=== PATIENT | male | born 1955 | race Caucasian/White ===

== ENCOUNTER 2016-10-11 14:18 | Inpatient (IN) | payer OTHER ==
[2016-10-08 18:54] LABS: BUN (BLOOD UREA NITROGEN) 21 MG/DL (6-23); CALCIUM, SERUM 8.7 MG/DL (8.5-10.4); CHLORIDE, SERUM 93 MMOL/L (96-112); CO2 (CARBON DIOXIDE) 25 MMOL/L (24-34); CREATININE 1.25 MG/DL (0.70-1.30); GFR AFRICAN AMERICAN 71 ML/MIN (>=60); GFR NON AFRICAN AMERICAN 61 ML/MIN (>=60); POTASSIUM, SERUM 5.2 MMOL/L (3.5-5.3); SODIUM, SERUM 127 MMOL/L (135-148)
[2016-10-08 18:55] LABS: GLUCOSE, SERUM 189 MG/DL (60-99)
--- NOTE | ~2016-10-11 | IDS ---
Interim Discharge Summary [facility] [address] [place]. [address] NAME: ELADIO PETER : 53 STATUS : ADM IN PAT#: [id number] AGE: 61 ADM/REG DATE : 10/11/16 MR#: [id number] REPORT SERV DATE: 10/28/16 DICTATED BY: LORETA VIZCAINO DATE: 10/27/16 REPORT STATUS : Draft TRANSCRIBED BY: MODL DATE: 10/27/16 ADMISSION DATE: 10/11/2016 DISCHARGE DATE: ADDENDUM: Addendum to interim discharge summary dictated by Dr. Xavi Bernal on 10/24/2016. I have seen Mr. Eladio Peter for 10/25/2016 and 10/26/2016. During this period of time, the patient developed somewhat more severe encephalopathy that has been evaluated and managed by the patient's neurologist, Dr. Gan, as well as an episode of respiratory distress that prompted a CTA of the chest, as well as 2D echo. 2D echo preliminary did not show any signs of pericarditis, but the CTA of the chest with PE protocol has shown that the patient might have possible a small amount of filling defects identified in the dependent secondary and tertiary branches of the right and lower left lung which might be chronic disease. These are acute and may represent a very small volume of PE. The patient has been started on heparin drip with no bolus by Neurology on 10/26/2016 due to his history of atrial fibrillation obviously. 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 Gan, Neurology. The patient has, however, some significant confusion over the last 24 to 48 hours, and the patient did have on a CT of the brain, repeat by Dr. Gan today on 10/27/2016, it shows stable left temporal and medial right occipital hypoattenuation compatible with prior strokes in the BUSINESS OPERATIONS DIRECTOR distribution and there is a stable faint band of increased density adjacent to the temporal horn which might represent some necrosis or some microhemorrhagic changes, but no large hemorrhagic conversion seen nor significant mass effect seen. The patient, as per prior interim discharge summary of Dr. Bernal for 10/24/2016, continued to be co-managed by Neurology, Cardiothoracic Surgery, Cardiology and Infectious Disease with tentatively plans for likely rehabilitation if the patient continues to progress. CF/MODL Loreta Vizcaino M.D. / [id number] CC: Meggan Mc PANKAJ
--- NOTE | ~2016-10-11 | OP ---
Record Of Operation [facility] [address] [place]. [address] NAME: ELADIO PETER : 53 STATUS : ADM IN PAT#: [id number] AGE: 61 ADM/REG DATE : 10/11/16 MR#: [id number] REPORT SERV DATE: 10/13/16 DICTATED BY: ELIO CHAKRABORTY DATE: 10/13/16 REPORT STATUS : Draft TRANSCRIBED BY: MODL DATE: 10/13/16 DATE OF PROCEDURE: 10/13/2016 REASON FOR PROCEDURE: Rule out endocarditis, occipital stroke (new). DESCRIPTION OF PROCEDURE: All questions were answered and informed consent was obtained. Anesthesia sedated the patient. The transesophageal probe was inserted without complication on the first attempt. FINDINGS: Overall, echocardiographic windows were significantly limited as a result of prior bioprosthetic aortic valve replacement. 1. Grossly normal left ventricular systolic function with an estimated ejection fraction of 55%. 2. Grossly normal right ventricular size and systolic function. 3. Mobile echodensity noted on the ventricular surface of the aortic valve, most consistent with a vegetation. 4. Mean aortic valve gradient of approximately 21 mmHg, peak gradient of approximately 47 mmHg. Elevated gradients across the aortic valve prosthesis. 5. Structurally normal mitral and tricuspid valve without evidence of endocarditis. 6. Color Doppler demonstrates evidence of a PFO. 7. Mild tricuspid regurgitation and mitral regurgitation on color Doppler assessment. VR/NICOLE Elio Chakraborty MD / [id number] CC: MD Vj Rice
--- NOTE | ~2016-10-11 | DS ---
Discharge Summary [facility] [address] [place]. [address] NAME: ELADIO PETER : 53 STATUS : DIS IN PAT#: [id number] AGE: 61 ADM/REG DATE : 10/11/16 MR#: [id number] REPORT SERV DATE: 11/11/16 DICTATED BY: JR. MCNULTY WILLIAM JOHN DATE: 11/10/16 REPORT STATUS : Draft TRANSCRIBED BY: MODL DATE: 11/10/16 ADMISSION DATE: 10/11/2016 DISCHARGE DATE: 11/10/2016 INTERNAL MEDICINE DISCHARGE SUMMARY DISCHARGE DIAGNOSES: Include 1. Aortic valve endocarditis, status post redo aortic valve replacement and Maze procedure. 2. Embolic stroke with mild hemorrhagic conversion to the left posterior cerebral artery distribution. 3. Encephalopathy. 4. Paroxysmal atrial fibrillation. 5. Left lower extremity deep vein thrombosis, status post IVC filter. 6. Chronic systolic heart failure. 7. Diabetes mellitus type 2 with long-term insulin use. 8. Hypertension. 9. Depression. OPERATIONS, PROCEDURES, AND TREATMENTS: Include 1. CT of the brain done 10/11/2016, which showed late subacute infarct of the left occipital cortex and subcortical white matter. 2. Chest x-ray done 10/11/2016, which showed no acute cardiopulmonary process; stable sternotomy wires, right PICC line with tip over the SVC. 3. Carotid flow study done 10/12/2016, which showed carotids demonstrating category 1 less than 50% luminal stenosis. Right and left vertebral flow with antegrade. 4. CT of the abdomen and pelvis done 10/12/2016 showed ongoing bilateral perinephric stranding. The kidneys were not mechanically obstructed. There was development of small amount of bibasilar atelectasis, cardiomegaly, status post aortic valve replacement, coronary artery disease appeared stable. 5. Gastric emptying study done 10/12/2016 showed it was normal. 6. MRI of the brain without contrast done 10/12/2016 showed acute bilateral PELTS SKINNER infarcts. There were infarctions to the left thalamic body and right thalamic body seen on image 14 series 11. There was a small watershed infarct to the left cerebral hemisphere. There were tiny infarcts at the upper cortical frontoparietal region bilaterally suggesting multicirculation beds, all consistent with embolization. Right and left PEL[place]INNER demonstrate hemorrhagic transformation particularly on the left. 7. Transesophageal echocardiogram done 10/13/2016 showed grossly normal left ventricular systolic function with an ejection fraction of 55%. There was normal right ventricular size and systolic function. There was a mobile echodensity noted in the ventricular surface of the aortic valve, most consistent with vegetation. There was mean aortic gradient approximately 21 mmHg and peak gradient of 47 mmHg. There were elevated gradients across the aortic valve prosthesis. There were structurally normal mitral and tricuspid valves without endocarditis. Mild tricuspid regurgitation and mitral regurgitation. 8. CT of the brain done 10/13/2016 showed hemorrhagic conversion on the left, probably Discharge Summary [facility] [address] [facility] [place]. [address] NAME: ELADIO PETER : 53 STATUS : DIS IN PAT#: [id number] AGE: 61 ADM/REG DATE : 10/11/16 MR#: [id number] REPORT SERV DATE: 11/11/16 DICTATED BY: JR. MCNULTY WILLIAM JOHN DATE: 11/10/16 REPORT STATUS : Draft TRANSCRIBED BY: MODL DATE: 11/10/16 right occipital regions contrary to preliminary reported already been reported on the earlier evening MRI. 9. CT of the abdomen and pelvis done 10/13/2016 showed evidence of splenic infarction posterior pole in the midportion spleen of an acute nature. There was minimal bibasilar atelectatic change. Kidneys were intact. 10.Repeat CT of the brain done 10/14/2016, showed findings being compatible with bilateral posterior cerebral artery infarctions and evolution with more conspicuous hypoattenuation in the occipital and medial temporal lobes bilaterally. This is larger on the right than the left, again demonstrating very tiny foci of hyperattenuation, likely representing areas of petechial hemorrhage. There was mild cortical volume loss and known bilateral thalamic, left cerebellar and tiny bilateral prior parietal infarcts. 11.CT angiogram of the brain done 10/15/2016 showed vertebral brachiocephalic structures, intracranial basilar and posterior cerebral arteries without cutoff. On the right, there appeared to be category 3 short-segment under 1 cm of stenosis consistent with severe stenosis. It was not preocclusive in appearance. The subclavian and vertebral arteries appeared intact. There was cranial study demonstrating no hemorrhagic conversion. 12.CT angiogram of the neck done 10/15/2016 as above. 13.Chest x-ray done 10/16/2016 showed discoid atelectasis at the left base. 14.Multiple repeat chest x-rays with similar findings. 15.Cardiac catheterization done by Dr. Juan M Low on 10/20/2016 which showed [place] vessel coronary artery disease with flow-limiting disease of the first obtuse marginal artery only. There was widely patent saphenous vein graft to the first obtuse marginal artery. 16.Redo sternotomy with redo aortic root replacement reimplantation of the coronary arteries with left atrial Maze procedure performed on cardiopulmonary bypass using radiofrequency ablation. Re-implantation of single saphenous vein graft into the new homograft. Right axillary artery cannulation for cardiopulmonary bypass using 8 mm Dacron graft. There was endoscopic harvest of the saphenous vein graft of the right lower leg and transesophageal echocardiography by Dr. Mahad Donohue on 10/21/2016. 17.CT of the brain done 10/23/2016, showed findings compatible with basilar bilateral posterior cerebral artery distribution infarct and evolution involving the left temporal and occipital lobes as well as the right occipital lobe. There is continued sulcal effacement with some effacement of temporal and occipital horns and left lateral ventricle without midline shift. There was new left temporooccipital periventricular band of mildly increased attenuation possibly representing an area of microhemorrhage change or laminar necrosis. There was no large area of hemorrhagic conversion identified. There was stable mild diffuse cortical volume loss. PA and lateral chest x-ray showed left basilar pleural effusion. 18.CT angiogram of the chest done 10/26/2016, showed some small volume bibasilar filling defects in the dependent secondary and tertiary branches of the right lower lobe and left lung which may be chronic; if acute, it could represent a very small pulmonary emboli. There was revision of the ascending graft repair evident. 19.CT of the brain done 10/27/2016 showed stable left temporooccipital and medial right occipital hypoattenuation and sulcal effacement without large hemorrhagic conversion seen. Venous Doppler ultrasound done 10/28/2016, showed some clot identified in the Discharge Summary [address] [place] [address] NAME: ELADIO PETER : 53 STATUS : DIS IN PAT#: [id number] AGE: 61 ADM/REG DATE : 10/11/16 MR#: [id number] REPORT SERV DATE: 11/11/16 DICTATED BY: JR. PRICILA,DUNCAN MARIE DATE: 11/10/16 REPORT STATUS : Draft TRANSCRIBED BY: MODL DATE: 11/10/16 greater saphenous vein proximal to the junction, did not penetrate into the common femoral, however repeat exam in 3 to 5 days would be warranted. 20.MRI of the brain done 10/29/2016, showed maturing left and right posterior cerebral artery infarction with hemorrhagic conversion with evidence of scattered microbleeds in the hemispheres, new right insular infarction, and small amount of hemorrhagic complication notified. 21.Vena cava retrievable filter below the renal vein ostium, pre and post deployment vena cava appeared otherwise normal, done 10/31/2016. 22.CT of the brain done 11/03/2016, showed stabilized occipital infarctions bilaterally which have appeared to have matured into chronic infarctions. 23.PA and lateral chest x-ray done 11/08/2016 showed improved chest with small residual bilateral pleural effusion. CONSULTING PHYSICIANS: Include Dr. Wilcox; Dr. Patrick; Dr. Donohue; and Dr. Low. DISCHARGE MEDICATIONS: 1. Vitamin C 1000 units twice a day. 2. Aspirin 81 mg daily. 3. Lipitor 80 mg daily. 4. Amiodarone 400 mg twice a day. 5. Kefzol 2 g IV every eight hours for 22 days. 6. Vitamin D 50,000 units every Thursday. 7. Lexapro 10 mg daily. 8. Pepcid 20 mg daily. 9. Neurontin 100 mg four times a day. 10.Sliding scale Humalog insulin. 11.Lisinopril 5 mg daily. 12.Melatonin 9 mg at bedtime. 13.Multivitamin tablet orally daily. 14.Bactroban intranasally twice a day. 15.Metoprolol 12.5 mg orally twice a day. 16.MiraLAX one dose daily. 17.Seroquel 25 mg twice a day. 18.Florastor 1 capsule twice a day. 19.Senna 2 tablets twice a day. 20.Thiamine 100 mg daily. 21.Coumadin 5 mg daily per sliding scale. 22.Zinc 220 mcg daily. 23.Klonopin 0.5 mg every eight hours. 24.DuoNeb nebulized every four hours. 25.Dulera inhaled twice a day. 26.Levemir insulin 15 units twice a day. HOSPITAL COURSE: The patient was a 61-year-old white male, who presented to the [facility] on 10/11/2016 with vision loss of one day duration. The patient had a prior history of suspected endocarditis and was on Ancef via a PICC line. He also had a history of transaortic valve replacement, history of atrial fibrillation, type 2 diabetes, and Discharge Summary [place] [id number] [place]. [address] NAME: ELADIO PETER : 53 STATUS : DIS IN PAT#: [id number] AGE: 61 ADM/REG DATE : 10/11/16 MR#: [id number] REPORT SERV DATE: 11/11/16 DICTATED BY: JR. MCNULTY WILLIAM JOHN DATE: 11/10/16 REPORT STATUS : Draft TRANSCRIBED BY: NICOLE DATE: 11/10/16 congenital bicuspid aortic valve. The patient described acute vision loss in both eyes of one day's duration. He was admitted to the hospital by Dr. Santana Henry. Please see his excellent dictation for exact details of the presenting history, physical, and presenting data. The patient underwent multiple MRIs and was found to have bilateral posterior cerebral artery distribution strokes. There was conversion to some hemorrhagic component. He subsequently underwent a transesophageal echocardiogram which showed vegetations. Infectious Disease was involved. The patient was continued on Ancef. He will be evaluated by cardiac catheterization, Dr. Patrick, followed by consultation with Dr. Donohue of thoracic surgery. He underwent a valve replacement as above with single bypass and Maze procedure as above. In the postoperative period, the patient was found to have deep vein thrombosis. With his microhemorrhagic disease, he is not initially a candidate for anticoagulation, therefore underwent an inferior vena caval filter. As the microhemorrhages mature, the patient was felt to be stable for anticoagulation and is currently on Coumadin per protocol. The patient had a PICC line placed which had some redness at the insertion site. This was changed and replaced with a single-lumen catheter on the day of discharge 11/10/2016. For further details, please see the interim summaries dictated by Dr. Kent; Dr. Bernal; Dr. Saleem; and Dr. Siegel. Time spent on this discharge was greater than 70 minutes for patient encounter, coordination of care, and documentation. CHIQUIS/NICOLE Duncan Mcnulty Jr, MD / [id number] CC: Meggan Mc
--- NOTE | ~2016-10-11 | IDS ---
Interim Discharge Summary [facility] [address] [place]. [address] NAME: ELADIO PETER : 53 STATUS : ADM IN [facility]#: [id number] AGE: 61 ADM/REG DATE : 10/11/16 MR#: [id number] REPORT SERV DATE: 11/03/16 DICTATED BY: SHYLA SANDERS DATE: 11/03/16 REPORT STATUS : Draft TRANSCRIBED BY: NICOLE DATE: 11/03/16 ADMISSION DATE: 10/11/2016 DISCHARGE DATE: DIAGNOSES: 1. Embolic cerebrovascular accident with hemorrhagic conversion. 2. Encephalopathy secondary to above, improved. 3. Aortic valve endocarditis, status post redo aortic valve replacement. 4. Atrial fibrillation. 5. Insulin-dependent diabetes. 6. Microembolic pulmonary embolisms. 7. Left lower extremity thrombus, status post IVC filter. 8. Systolic congestive heart failure. PROCEDURES: IVC filter placement. HOSPITAL COURSE: This interim summary is for this interim week. Please refer to multiple interim summaries from Dr. Henry, Dr. Giles, Dr. Bernal, Dr. Saleem for further details. I attended care for Mr. Peter initiating on 10/28/2016 through 11/04/2016. During this interim week, the patient did have intermittent agitation, although no neuro focal deficits and continued to be seen by Neurology. Neurology did give the patient a trial of IV heparin. However, the patient had repeat MRI that revealed worsening hemorrhagic conversion and also new right insular infarction with a small amount of hemorrhage, therefore anticoagulation was completely stopped. The patient deemed not a candidate. He did have venous Doppler ultrasound of his right lower extremity that revealed clot in the greater saphenous vein, not a DVT yet, but could propagate into a DVT. Therefore, it was discussed with the patient and concerning an IVC retrievable filter. The patient and also consented for retrievable IVC filter for further protection. The patient already has microembolic PEs most likely from thrombus of the right lower extremity. He remains on room air. No signs of tachypnea. Neurology is planning on a repeat CT of the brain for further followup. Also, [facility] CONSULTANTS: 1. Neurology, Dr. Ahn and nurse practitioner, Sara. 2. Cardiothoracic Surgery, Dr. Donohue and Cardiology, Dr. Low. The patient will be followed by Dr. Loreta Saleem once again, who will attend to Mr. Peter's care. [facility]/NICOLE Shyla Sanders M.D. Interim Discharge Summary [address] [address] NAME: ELADIO PETER : 53 STATUS : ADM IN [facility]#: [id number] AGE: 61 ADM/REG DATE : 10/11/16 MR#: [id number] REPORT SERV DATE: 11/03/16 DICTATED BY: SHYLA SANDERS DATE: 11/03/16 REPORT STATUS : Draft TRANSCRIBED BY: NICOLE DATE: 11/03/16 / [id number] CC: Meggan Hays Pankaj
--- NOTE | ~2016-10-11 | HP ---
History And Physical [place] [address] [facility] [place]. [address] NAME: ELADIO PETER : 53 STATUS : ADM IN [facility]#: [id number] AGE: 61 ADM/REG DATE : 10/11/16 MR#: [id number] REPORT SERV DATE: 10/12/16 DICTATED BY: SANTANA KING DATE: 10/11/16 REPORT STATUS : Draft TRANSCRIBED BY: MODL DATE: 10/11/16 DATE OF ADMISSION: 10/11/2016 REASON FOR ADMISSION: Vision loss x1 day. HISTORY OF PRESENT ILLNESS: A 61-year-old white male with past medical history of group B strep bacteremia with suspected endocarditis on Ancef with PICC line; history of TAVR, transaortic valve replacement; history of AFib, now in sinus rhythm; diabetes type 2; and history of congenital bicuspid aortic valve status post TAVR, presenting with vision loss x24 hours. The patient stated that his last known vision clarity was approximately yesterday. Unfortunately, the patient could not give any exact timeframe. Based on the who was at bedside, the patient's stated he was able to see approximately in the evening before he went to bed. The patient noted that he was having headaches as well as blurry vision and he could not see the TV. The patient did go to bed and woke up in the morning in his usual fashion where the patient's managed to hook him up to his antibiotics for his endocarditis. Again, the noticed nothing different. The patient did admit subsequently to smoking some marijuana. Again, the patient was a little bit vague as to how much he was smoking. Other than the headache, the patient denies any nausea, vomiting, loss of consciousness or seizures. He denies any confusion, dysarthria, dysphagia, or tongue biting. He does admit to having palpitations prior to his having vision loss. PAST MEDICAL HISTORY: As above. MEDICATIONS: The patient takes: 1. Albuterol 2 puffs q.6 hours p.r.n. 2. Norvasc 5 mg p.o. daily. 3. Aspirin 325 mg p.o. daily. 4. Symbicort 80/4.5 two puffs b.i.d. 5. Ancef 1 g IV q.8. 6. Cardizem 120 mg p.o. daily. 7. Neurontin 300 mg p.o. at bedtime. 8. Glycerin Visine drops, 1 ophthalmic daily p.r.n. 9. Insulin sliding scale. 10.Nitroglycerin sublingual p.r.n. 11.Florastor 250 mg b.i.d. 12.Saw palmetto 920 mg p.o. daily. 13.Testosterone dose IM q.14 days. SOCIAL HISTORY: History of marijuana use, nondrinker. FAMILY HISTORY: Significant for ETOH abuse, COPD. REVIEW OF SYSTEMS: A 10-point review of systems conducted which were negative except for above complaints. History And Physical [address] [address] NAME: ELADIO PETER : 53 STATUS : ADM IN [facility]#: [id number] AGE: 61 ADM/REG DATE : 10/11/16 MR#: [id number] REPORT SERV DATE: 10/12/16 DICTATED BY: SANTANA KING DATE: 10/11/16 REPORT STATUS : Draft TRANSCRIBED BY: NICOLE DATE: 10/11/16 PHYSICAL EXAMINATION: VITAL SIGNS: Temp of 98.6, pulse of 97, respiratory rate of 22, BP 120/65, and O2 saturation 97%. HEAD AND NECK: Normocephalic, atraumatic. CARDIOVASCULAR: S1, S2. Regular rate and rhythm. LUNGS: Good air entry. No wheeze, rales, or rhonchi. ABDOMEN: Soft, nontender, nondistended. EXTREMITIES: No clubbing, cyanosis, or edema. NEUROLOGIC: The patient is completely blind bilaterally. Power is equal in all four limbs. Sensation is intact. No other focal deficit other than vision. LABORATORY DATA: WBC 12.9, hemoglobin 11.2, hematocrit 35.5, platelets 202. PT 17.6, INR 1.5. Sodium 127, potassium 4.8, chloride 94, bicarb 21, BUN 22, creatinine 1.4, glucose 165, GFR 53, total calcium 8.7, total protein 7.8, albumin 2.7, globulin 5.2, total bilirubin 1.0, alkaline phosphatase 173, ALT 131, AST 74. Acetone negative. Tylenol less than 2. Salicylate less than 1.7. Alcohol less than 10. ABG on room air shows pH of 7.45, pCO2 of 27, PaO2 of 88, bicarb 18.2, and O2 sat 96.6. UDS shows positive for cannabis. CT of the head shows late subacute infarct in left occipital cortex and subcortical white matter. Chest x-ray, portable, shows no acute cardiopulmonary. ASSESSMENT AND PLAN: 1. Bilateral vision loss. Based on the CT scan, the patient infarcted the left suboccipital, questionable if he also infarcted the right. We will start the patient on his aspirin, also Lipitor 80 mg p.o. at bedtime. In addition, we will continue the patient's Cardizem, questionable if this is for his atrial fibrillation versus hypertension. We will also do a swallow eval at bedside and also do PT and OT for the patient. 2. Diabetes type 2. We will continue the patient's sliding scale level 2. Check blood sugar a.c. and at bedtime. Check HbA1c and lipid profile. 3. Chronic obstructive pulmonary disease. We will continue the patient's Symbicort and albuterol. 4. DVT prophylaxis. We will give heparin. KEITH/NICOLE Santana King MD / [id number] History And Physical [address] [address] NAME: ELADIO PETER : 53 STATUS : ADM IN [facility]#: [id number] AGE: 61 ADM/REG DATE : 10/11/16 MR#: [id number] REPORT SERV DATE: 10/12/16 DICTATED BY: SANTANA KING DATE: 10/11/16 REPORT STATUS : Draft TRANSCRIBED BY: MODL DATE: 10/11/16 CC: Santana King MD
--- NOTE | ~2016-10-11 | OP ---
Record Of Operation [facility] [address] [place]. 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 PROCEDURE: Left heart catheterization, coronary arteriography, saphenous vein graft arteriography. DESCRIPTION OF PROCEDURE: After informed consent was obtained, the patient was taken in the fasting state to the cardiac catheterization laboratory, where he was prepped and draped in sterile fashion. IV moderate sedation was then obtained using intravenous Versed and fentanyl. The right inguinal region was anesthetized using 1% Xylocaine. The right femoral artery was then entered using a front wall approach and cannulated with 6-Baham[place] arterial sheath. A 6-[place]aham[place] JR4 diagnostic catheter was then used to engage the saphenous vein graft to the obtuse marginal artery. Serial angiograms were obtained. This catheter was then used to engage the [place] right coronary artery. Serial angiograms of this vessel were obtained. This catheter was then exchanged for a 6-Baham[place] JL4 catheter, which did not adequately engage the left main coronary artery. It was then exchanged for a 6-[place]am[place] JL5 catheter, which adequately engaged the vessel. Serial angiograms were obtained. Results of study as follows: HEMODYNAMICS: Aorta 100/56 with a mean pressure of 76 mmHg. CORONARY ANATOMY: 1. Left main coronary artery: The left main coronary artery arises normally from left coronary cusp. This vessel is widely patent with minimal luminal irregularities only. 2. Left anterior descending artery: The left anterior descending artery arises normally from left main coronary artery. This vessel has minimal luminal irregularities of less than 20%. 3. Left circumflex artery: The left circumflex artery arises normally from left main coronary artery. This vessel is nondominant. This vessel gives off a medium caliber bifurcating first obtuse marginal artery. The inferior limb of this bifurcating vessel has a stent visible, which is occluded. 4. The saphenous vein graft to the obtuse marginal artery is widely patent providing flow to the superior limb of the obtuse marginal artery. Some retrograde flow of the common circumflex is also identified. Mild retrograde filling of the inferior limb was seen via collaterals from the LAD. 5. Right coronary artery: The right coronary artery arises normally from the right coronary cusp. This is a large dominant vessel, which has luminal irregularities to 30%. COMPLICATIONS: No apparent complications. CONCLUSIONS: Record Of Operation [address] [place]. [address] NAME: ELADIO PETER : 53 STATUS : ADM IN PAT#: [id number] AGE: 61 ADM/REG DATE : 10/11/16 MR#: [id number] REPORT SERV DATE: 10/20/16 DICTATED BY: JUAN M VELA DATE: 10/20/16 REPORT STATUS : Draft TRANSCRIBED BY: NICOLE DATE: 10/20/16 1. [place] vessel coronary artery disease as described above. Flow-limiting disease of the first obtuse marginal artery only. 2. Widely patent saphenous vein graft to first obtuse marginal artery. 3. No apparent complications. /NICOLE Juan M Vela M.D., [facility] / [id number] CC: Meggan Cabezas PANKAJ James Zellner, M.D.
--- NOTE | ~2016-10-11 | CN ---
Consultation Report [facility] [address] [place]. [address] NAME: ELADIO PETER : 53 STATUS : ADM IN PAT#: [id number] AGE: 61 ADM/REG DATE : 10/11/16 MR#: [id number] REPORT SERV DATE: 10/12/16 DICTATED BY: DATE: REPORT STATUS : Draft TRANSCRIBED BY: MODL DATE: 10/12/16 NEUROLOGY CONSULTATION DATE OF CONSULTATION: 10/12/2016 REASON FOR CONSULT: Stroke. 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 As a result, the patient was presented to [facility] for evaluation. The patient's denies any similar events in the past and denies any previous history of stroke. The patient does not have any associated motor deficits. Denies any dysarthria, dysphagia, or language difficulties. Denies focal weakness in the arms and legs. The patient otherwise was not noted to have any fever since hospitalization and does not have any other recent illness at the time of evaluation. PAST MEDICAL HISTORY: Significant for endocarditis as well as history of transaortic valve replacement, history of atrial fibrillation, does not appear to have previous anticoagulations according to patient and family members, and type 2 diabetes. SOCIAL HISTORY: The patient does have a history of marijuana usage. He does not appear to have tobacco or alcohol usage. FAMILY HISTORY: Significant for alcohol abuse as well as COPD. REVIEW OF SYSTEMS: Negative except for those mentioned in the HPI. HOME MEDICATIONS: Consist of albuterol, amlodipine, aspirin, Symbicort, Ancef, Cardizem, Neurontin, Visine, NovoLog, Imdur, lisinopril, metoprolol, nitroglycerin, Florastor, Saw palmetto, Zocor, and testosterone. ALLERGIES: THE PATIENT WAS NOTED TO HAVE ALLERGIES TO CODEINE, SHELLFISH, WELL PSEUDOEPHEDRINE. PHYSICAL EXAMINATION: VITAL SIGNS: At the time of my evaluation, the patient was noted to have vital signs with T max of 99.4, heart rate of 76 to 119, respirations of 18 to 19, and blood pressure of 106 to 144 over 64 to 73. GENERAL: The patient is well developed, well nourished, in no acute distress. CARDIOVASCULAR: Regular rate and rhythm. No carotid bruits were otherwise auscultated. PULMONARY: Clear to auscultation bilaterally. Consultation Report [facility] [address] [place]. [address] NAME: ELADIO PETER : 53 STATUS : ADM IN PAT#: [id number] AGE: 61 ADM/REG DATE : 10/11/16 MR#: [id number] REPORT SERV DATE: 10/12/16 DICTATED BY: DATE: REPORT STATUS : Draft TRANSCRIBED BY: MODL DATE: 10/12/16 NEUROLOGIC: Generally, the patient is alert and oriented to person, place, year, month. No dysarthria was noted. No aphasia was appreciated. The patient was noted to have intact registration, but some difficulties with recall. Cranial nerves 2 through 12: Pupils are equal, round, and reactive to light. Extraocular eye movement was noted to be intact at the time of evaluation. The patient otherwise was noted to have a loss of bilateral peripheral vision, but there is preservation of the central vision at the time of evaluation. Reports symmetrical facial sensation. Midline tongue. Normal palatal movement. Normal hearing. The patient demonstrated 5/5 bilateral upper and lower extremity strength with normal muscle, bulk, and tone. Deep tendon reflex was otherwise 1+ throughout, also 2+ throughout. Downgoing toe on bilateral plantar reflexes. No apparent ataxia was noted. No pronator drift was noted on stress evaluation. Gait was deferred secondary to the acute vision changes. LABORATORY STUDIES: Demonstrated white blood cell count of 22.5, hemoglobin of 11.4, hematocrit of 34.7, platelet count of 206. Chemistry panel: Sodium 129, potassium 4.5, chloride of 96, bicarb of 18, BUN of 13, creatinine 0.89, glucose of 153, calcium of 8.9, magnesium 1.7. Vitamin B12 of 504. Folate level 5.3. Serum TSH of 3.09 and free T4 is 1.43. Hemoglobin A1c is currently pending. Urine drug screen is positive for cannabinoids, otherwise, UDS is negative for leukocyte esterase and negative for nitrites. CT scan of the brain demonstrated hypoattenuation in the left [employer] territory and left occipital area concerning for subacute stroke. IMPRESSION: Left posterior cerebral artery stroke with the patient noted to have preserved central vision, bilateral eyes. NIH stroke scale of 2. No focal motor deficit was otherwise noted. The patient does have a history of recent endocarditis as well as a history of atrial fibrillation without being on anticoagulation, concern for possible cardioembolic source. We will obtain blood cultures x2. We will also obtain DEDRA. May consider cardiology consult for evaluation of possible anticoagulation usage. Meanwhile, we are recommending continue aspirin and statin. We will obtain fasting lipid panel and hemoglobin A1c. RECOMMENDATION: 1. Aspirin and statin. 2. Fasting lipid panel and hemoglobin A1c. 3. MRI of the brain without contrast. 4. DEDRA. 5. Blood cultures x2. [facility]/NICOLE Joselito Gan MD Consultation Report [address] [address] NAME: ELADIO PETER : 53 STATUS : ADM IN [facility]#: [id number] AGE: 61 ADM/REG DATE : 10/11/16 MR#: [id number] REPORT SERV DATE: 10/12/16 DICTATED BY: DATE: REPORT STATUS : Draft TRANSCRIBED BY: NICOLE DATE: 10/12/16 / [id number] CC: MD YAMIL Rice PANKAJ
--- NOTE | ~2016-10-11 | OP ---
Record Of Operation [facility] [address] [place]. [address] NAME: ELADIO EPTER : [birth year] STATUS : ADM IN PAT#: [id number] AGE: 61 ADM/REG DATE : 10/11/16 MR#: [id number] REPORT SERV DATE: 10/22/16 DICTATED BY: SHUBHAM DONOHUE DATE: 10/21/16 REPORT STATUS : Draft TRANSCRIBED BY: MODL DATE: 10/21/16 DATE OF PROCEDURE: 10/21/2016 PREOPERATIVE DIAGNOSES: 1. Prosthetic aortic valve endocarditis. 2. Recent cerebrovascular accident (embolic). 3. Status post previous transcatheter aortic valve replacement (2014). 4. Status post previous aortic root replacement with homograft (2004). 5. Coronary artery disease, status post previous coronary bypass grafting and stenting of coronary arteries. 6. Chronic obstructive pulmonary disease. 7. Paroxysmal atrial fibrillation. 8. History of squamous cell carcinoma of the neck, status post radiation and surgery. 9. Hepatitis C. 10.History of tobacco and marijuana use. POSTOPERATIVE DIAGNOSES: 1. Prosthetic aortic valve endocarditis. 2. Recent cerebrovascular accident (embolic). 3. Status post previous transcatheter aortic valve replacement (2014). 4. Status post previous aortic root replacement with homograft (2004). 5. Coronary artery disease, status post previous coronary bypass grafting and stenting of coronary arteries. 6. Chronic obstructive pulmonary disease. 7. Paroxysmal atrial fibrillation. 8. History of squamous cell carcinoma of the neck, status post radiation and surgery. 9. Hepatitis C. 10.History of tobacco and marijuana use. PROCEDURES PERFORMED: 1. Redo sternotomy with redo aortic root replacement and reimplantation of the coronary arteries. 2. Left atrial Maze procedure performed on cardiopulmonary bypass using radiofrequency ablation. 3. Re-implantation of a single saphenous vein graft into the new homograft. 4. Right axillary artery cannulation for cardiopulmonary bypass using an 8 mm Dacron graft. 5. Endoscopic vein harvest saphenous vein from the right lower leg. 6. Transesophageal echocardiography. SURGEON: Shubham Donohue M.D. ASSISTANTS: Alessio Rodas, Robb Stanley, Claire Ceballos, and Rudolph Eisenberg. ANESTHESIA: General, Dr. Elliott. Record Of Operation [facility] [address] [place]. [address] NAME: ELADIO PETER DOB: [birth year] STATUS : ADM IN PAT#: [id number] AGE: 61 ADM/REG DATE : 10/11/16 MR#: [id number] REPORT SERV DATE: 10/22/16 DICTATED BY: SHUBHAM DONOHUE DATE: 10/21/16 REPORT STATUS : Draft TRANSCRIBED BY: NICOLE DATE: 10/21/16 CABLE SYSTEMS INSTALLER: Juan M Low M.D., [facility]. INDICATIONS: This is a 61-year-old gentleman, who has a history of a transarterial aortic valve replacement in 2014. He originally had an aortic root replacement with single-vessel bypass to the obtuse marginal vessel in 2004. He had recurrent stenosis and underwent TAVR procedure in 2014. He was admitted in August of this year with fevers and just not doing well with unknown cause. On the 11 of October, he was admitted the hospital with slurred speech and some vision loss and trouble speaking and thinking. He was found to have a subacute infarct of the occipital and subcortical cortex. He underwent evaluation with blood cultures that were positive I believe for Staphylococcus aureus. He underwent echocardiography that demonstrated vegetations of the prosthetic aortic valve and a mildly elevated gradient of 21 mmHg. We were asked to see the patient for possible urgent surgical correction. The patient was seen by Neurology and their input was sought at the time of the surgery. Because of the patient's recent episode of stroke and concern that this would occur again, it was felt that the patient should undergo elevated risk redo operation and redo aortic root replacement. In preparation for this, the patient underwent a cardiac catheterization, which demonstrated the second obtuse marginal vessel to be occluded and having collateral filling from the left system. The vein graft to the obtuse marginal system was patent directed down another OM vessel. We discussed possible urgent aortic root replacement with the patient and his . Predicted STS mortality in excess of 5% was discussed and I felt this was actually a low estimate which could not account for the patient's acute presentation and third time redo aortic valve. After lengthy discussion of operations, indication, risks, they wished proceed. FINDINGS AT OPERATION: 1. Cross-clamp 164 minutes. Total pump time 238 minutes. We used nursing home solution. 2. See photographs and record. 3. Old aortic root homograft and TAVR valve had evidence of vegetation and endocarditis. There was dehiscence of the aortic anulus and the aortic homograft in the region of the right coronary sinus and noncoronary sinus with probable abscess formation and possible pseudoaneurysm formation. 4. A 26 mm homograft was implanted. We also reimplanted the coronaries. 27 cor-knots were used to secure the aortic homograft in place. 5. Left atrial Maze procedure was performed on cardiopulmonary bypass with the left pulmonary vein isolation and left atrial appendage lesion and this was done using AtriCure bipolar clamp and pen. 6. We did ligate and amputate the left atrial appendage using 60 mm purple staple load. 7. The second obtuse marginal vessel was too small to be grafted. 8. We reimplanted the old bypass graft to the first obtuse marginal into the new homograft. 9. The bypass graft had good Doppler signal at the end of the case. 10.Right axillary artery cannulation was performed for arterial line cannulation for cardiopulmonary bypass. An 8 mm Dacron graft was anastomosed to the right axillary artery. 11.ART demonstrated good ventricular function at the end of the operation. There was mild mitral valve insufficiency. The aortic root homograft was functioning well with no aortic insufficiency. Record Of Operation [facility] [address] [facility] [place]. [address] NAME: ELADIO PETER : [birth year] STATUS : ADM IN [facility]#: [id number] AGE: 61 ADM/REG DATE : 10/11/16 MR#: [id number] REPORT SERV DATE: 10/22/16 DICTATED BY: SHUBHAM DONOHUE DATE: 10/21/16 REPORT STATUS : Draft TRANSCRIBED BY: MODL DATE: 10/21/16 12.Cultures of the aortic valve and aortic root abscess were obtained. Pathologic specimens include aortic valves, homograft, and portions of the ascending aorta. DESCRIPTION OF PROCEDURE: The patient was brought to the operating suite where general anesthesia was induced. Airway was secured with an endotracheal tube. Lines secured by Anesthesia. Calles catheter was placed. The patient's chest, abdomen, groin, and legs were prepped with Hibiclens and ChloraPrep and draped with Ioban sterile sheets. Art probe was placed by Dr. Elliott and examination carried out in my attendance as discussed above. Vegetations of the aortic valve could be seen on ART and there was mild mitral valve insufficiency. The saphenous vein was harvested from the right lower leg using endoscopic technique. Briefly, the vein was cut directly down upon through a 2 cm incision placed at the medial aspect right knee. Then, using VasoView trocars, the vessel was dissected from the surrounding subcutaneous tissue and fat. The side branches were identified, ligated, divided with cautery. Once adequate length of vein had been dissected, counter incisions were made in the lower leg where the vein was ligated, divided, and brought through the knee incision. The vein quality was good and leg wound was made hemostatic and closed in layers of absorbable suture and skin closed in subcuticular fashion. Then, the right axillary artery cannulation was carried out. A 6 cm incision made just inferior to the lateral one-third of the clavicle and carried through the subcutaneous tissue and chest wall musculature. The subclavian vein was identified and this was retracted inferiorly. Branches of the brachial plexus were identified and these were retracted gently cranial. The axillary artery was just deep to this layer and this was dissected proximally and distally. 5000 units of heparin were administered. Proximal and distal vessel controls were obtained using angled DeBakey clamps. Arteriotomy was made and the end of the 8 mm Dacron graft was anastomosed to this vessel with a running suture of 6-0 Prolene. The vascular clamps were removed. The graft de-aired. This 8 mm graft was then connected to the arterial line of the pump using a connector and this was secured to the chest wall with suture. Then, a sternal incision was performed through the old sternotomy scar. This was carried through the subcutaneous tissue. The sternal wires were divided and removed. We reconfirmed that the heart was well away from the back posterior table of the sternum and then, the sternum was opened using an oscillating saw. When the sternum opened, the adhesions from the posterior table sternum to the epicardial and pericardial space were taken down with cautery. Retractor was able to be placed and we continued this dissection focusing on the right side of the heart along the right atrium and ascending aorta. Pericardial stay sutures were placed and the pericardium was tacked out of the way. The ascending aortic homograft and the bypass graft going to the obtuse marginal were identified early and these were dissected circumferentially. The right atrium was cleared enough for cannulation and pursestring sutures were placed. Right atrial cannulation was then carried out. A dual-stage venous cannula was connected to the venous pump line. When all was in readiness, the patient was placed on cardiopulmonary bypass. We continued with our dissection of the heart from all the scar tissue. This was performed Record Of Operation [facility] [address] [facility] [place]. [address] NAME: ELADIO PETER : 53 STATUS : ADM IN PAT#: [id number] AGE: 61 ADM/REG DATE : 10/11/16 MR#: [id number] REPORT SERV DATE: 10/22/16 DICTATED BY: SHUBHAM DONOHUE DATE: 10/21/16 REPORT STATUS : Draft TRANSCRIBED BY: MODL DATE: 10/21/16 circumferentially. The homograft itself went up to about two-thirds of the ascending aorta and was very heavily calcified, but had islands of pockets of less calcification. The old vein graft was appeared to be in reasonable shape. Once we had completely dissected the heart circumferentially, the obtuse marginal vessel was inspected for possible bypass. I felt the vessel was just too small to graft. We then turned our attention towards the Maze procedure. Circumferential dissection around the confluence of pulmonary veins was carried out and the left atrial appendage was freed from the epicardial scarring. Pulmonary vein isolation was performed using AtriCure bipolar clamp. Both right and left sides were carried out. The lesion was placed at the base of left atrial appendage and a connecting lesion between the left PVI and base of left atrial appendage was performed using AtriCure bipolar pen. Then, the left atrium was ligated and amputated at its base using thoracoscopic stapler and 60 mm purple staple load. The ascending aorta was dissected up to the takeoff of the innominate artery. Previous anastomosis of the ascending aorta and homograft was easily identifiable by default that had been placed around the previous anastomosis. The aorta was then cross clamped at the takeoff of the innominate artery and the initial and only dose of cold blood crystalloid cardioplegia was given in antegrade fashion. A 2 L of Chcf solution were infused. Prior to this, ART demonstrated no significant aortic valve insufficiency. Following the first dose and only dose of cardioplegia, the homograft was divided just proximal to the takeoff of the obtuse marginal graft. The homograft was then dissected distally to its anastomosis to the ho-chunk aorta. The homograft was then transected at this level. Then, the aortic root was inspected. The old TAVR valve inside of the homograft was visualized and photographs were made. There were multiple calcifications between the cage of the TAVR valve prosthesis and the homograft. There was extensive calcifications in the aortic root and there were fibrinous vegetations on the leaflets of the TAVR prosthetic valve. We then dissected out the aortic root. The right and left coronary ostial anastomosis were dissected circumferentially and once this was achieved, we tacked the right and left main coronary buttons out of the way. We continued our dissection around the aortic root having identified the previously placed Lenny Thurston Ring around the anastomosis. This was then debrided. There was apparent disruption or dehiscence of this anastomotic suture line in the region of the base of the anulus at the right and non coronary cusps. Some of this material was cultured. In addition, a single vegetation from the prosthetic aortic valve leaflets were sent for culture. The prosthetic TAVR valve was removed by pulling on it and removing it easily from the aortic root. We continued to debride the aortic anulus of all the Thurston and the suture material from the original homograft. The area of the possible abscess was likewise debrided. Once this was completed, the whole aortic opening and annulus and left ventricle were irrigated copiously with iced saline to remove any particulate matter. We then used rifampin solution in the region of the abscess and around the aortic anulus. The annulus was then sized and a 26 mm homograft was selected and thawed. Interrupted nonpledgeted simple sutures of 2-0 Tycron placed circumferentially about the aortic anulus. After the homograft was adequately thought, it was brought up to the field and the aortic annular tissue of the homograft was dissected away from the myocardium and anterior leaf of Record Of Operation [address] [place]. [address] NAME: ELADIO PETER : 53 STATUS : ADM IN PAT#: [id number] AGE: 61 ADM/REG DATE : 10/11/16 MR#: [id number] REPORT SERV DATE: 10/22/16 DICTATED BY: SHUBHAM DONOHUE DATE: 10/21/16 REPORT STATUS : Draft TRANSCRIBED BY: MODLuciana DATE: 10/21/16 the mitral valve, which were discarded. Then, the homograft was brought up to the field beth and the sutures placed previously through the needle and the aortic anulus were passed through the annulus of the homograft. This was lowered into position and each sutures individually secured and divided using a Cor-Knot device. A total of 27 Cor-Knots were utilized. It should be noted that a small Thurston Strip was placed along this anastomosis within the suture line to prevent aortic root dilatation and failure of the homograft in the future. With the aortic valve homograft in place, the distal end of the homograft was divided just proximal to the takeoff of the innominate artery. We inspected inside the homograft and the valve leaflets appeared to be without obstruction or restricted movement. The right and left coronary buttons and ostia of the patient and the aortic root were matched up. We excised the coronary buttons of the new aortic homograft root. The left main coronary button was then sewn to the homograft with a running suture of 6-0 Prolene. In a similar fashion, the right main coronary button was trimmed and anastomosed to a small where we had excised the right coronary button from the homograft. This anastomosis was likewise performed with a running suture of 6-0 Prolene. Both coronaries were without significant tension. Then, warming was begun. The homograft was measured up to the distal portion of the ascending aorta just proximal to the aortic cross-clamp. The aorta was transected at this level and removed all this felt material and then the new homograft was anastomosed to the patient's ascending aorta with a running suture of 5-0 Prolene. Then, the old obtuse marginal vein graft was trimmed and anastomosed to the homograft at a site of a 5 mm punch aortotomy with a running suture of 6-0 Prolene. The patient was placed in Trendelenburg and ventricular and atrial pacing wires were placed. When the left ventricle and ascending aorta had been de-aired, the aortic cross-clamp was removed. Suture lines were inspected and made hemostatic. Doppler demonstrated good flow through the graft. Heart was allowed to rest on cardiopulmonary bypass for a short period of time and an AV pacing was performed and this was later converted to no pacing as the patient resumed a normal sinus rhythm. Low-dose inotropic agent was started and ventilations were begun. The heart was allowed to continue to rest on cardiopulmonary bypass. When heart demonstrated good contractility, it was allowed to fill and eject. When deairing was completed, the patient was taken out of Trendelenburg. The LV vent was removed and these pursestring sutures were tied. The ascending aortic vent was likewise removed and these pursestring sutures were tied and reinforced. The patient was then weaned from cardiopulmonary bypass with inotropic support. The venous cannula was removed and this pursestring suture was tied. The examination demonstrated good ventricular function. The aortic valve homograft appeared to be seated well and was without aortic valve insufficiency. There was mild mitral insufficiency as seen earlier during the case. Protamine was administered by Anesthesia and following a period of hemodynamic stability, the right axillary artery 8 mm Dacron graft was ligated and divided using a thoracoscopic stapler and 30 mm harris load. Then, hemostasis was obtained. The chest irrigated copiously with saline. There was mild Record Of Operation [address] [place]. [address] NAME: ELADIO PETER : 53 STATUS : ADM IN [facility]#: [id number] AGE: 61 ADM/REG DATE : 10/11/16 MR#: [id number] REPORT SERV DATE: 10/22/16 DICTATED BY: SHUBHAM DONOHUE DATE: 10/21/16 REPORT STATUS : Draft TRANSCRIBED BY: NICOLE DATE: 10/21/16 epicardial bleeding around where the old homograft had been excised from the patient's aortic root. This was controlled with Gelfoam thrombin. The patient continued to do well and once hemostasis was obtained, the chest was again irrigated with sterile water and saline. The pericardium was draped over the anterior surface and tacked in position. Chest tubes were placed and sternum reapproximated with eight sternal wires. The clavipectoral fascia and linea alba were closed with #1 Strata fix as was subcutaneous tissue. The skin was closed in subcuticular fashion. The patient tolerated the procedure well. There were no complications. Sponge and needle counts correct. DISPOSITION: The patient left intubated, sedated, and transported to the intensive care unit in a stable condition. MAVERICK/NICOLE Shubham Donohue M.D. / [id number] CC: Meggan Cabezas M.D., [facility]
--- NOTE | ~2016-10-11 | IDS ---
Interim Discharge Summary [facility] [address] [place]. [address] NAME: ELADIO PETER : 53 STATUS : ADM IN PAT#: [id number] AGE: 61 ADM/REG DATE : 10/11/16 MR#: [id number] REPORT SERV DATE: 10/15/16 DICTATED BY: TY GOINS DATE: 10/15/16 REPORT STATUS : Draft TRANSCRIBED BY: MODL DATE: 10/15/16 ADMISSION DATE: 10/11/2016 DISCHARGE DATE: DATE OF TRANSFER: 10/15/2016. CONDITION: Condition of the patient is guarded right now with guarded prognosis. DIAGNOSES: 1. So far include bilateral multifocal subacute occipital/posterior cerebral artery infarct with punctate hemorrhages noted and edema noted in the brain too where the patient is at a high risk for hemorrhagic conversion. 2. The source of this multiple emboli is cardiac-patient has intermittent atrial fibrillation and also has prosthetic aortic valve endocarditis. 3. Vegetations on the prosthetic aortic valve and endocarditis with Streptococcus. The endocarditis is with group B streptococcus, which is susceptible to Ancef. The patient is on IV Ancef and Infectious Disease is following and today is day #6 of IV Ancef. 4. The patient with group B Strep bacteremia with blood cultures positive for group B strep, sensitive to Ancef as mentioned above. 5. History of congenital bicuspid aortic valve status post replacement and now the patient with prosthetic valve endocarditis with vegetations seen on the prosthetic aortic valve. 6. Bilateral significant visual field defects secondary to the occipital infarcts. CONSULTS ON THE CASE: 1. Neurology. 2. Cardiology. 3. Cardiothoracic Surgery. 4. Infectious Disease. BRIEF HOSPITAL COURSE: This patient is a 61-year-old gentleman with a history of prosthetic aortic valve as he had a bicuspid aortic valve. The patient had a transaortic valve replacement in 2014. He also has a history of PAF. The patient has been on anticoagulation and had been doing well since, but he presented a few days ago with acute bilateral visual loss. He was found to have bilateral occipital/RUG WASHER cardioembolic stroke and hence was admitted to the hospital. As the patient underwent a DEDRA during this hospitalization as he had bacteremia with blood cultures positive for group B strep, the DEDRA did show that he had vegetations from the prosthetic aortic valve and also severe aortic stenosis with significant aortic valve gradient. Hence, CT surgery, Dr. Donohue was consulted. In the meantime, as Cardiology was planning to do a left heart catheterization on this patient and probably replacement of the aortic valve again and also for visualization of the coronary arteries and the aortic root, Neurology found that he did have shortness of breath with minimal exertion, mildly confused, and CT scan showed punctate hemorrhages and edema. Neurology was extremely concerned for hemorrhagic conversion in this patient. Hence, the Interim Discharge Summary [facility] [id number] [place]. [address] NAME: ELADIO PETER : 53 STATUS : ADM IN PAT#: [id number] AGE: 61 ADM/REG DATE : 10/11/16 MR#: [id number] REPORT SERV DATE: 10/15/16 DICTATED BY: TY GOINS DATE: 10/15/16 REPORT STATUS : Draft TRANSCRIBED BY: MODLuciana DATE: 10/15/16 reason for transfer to MICU. After discussing with both Neurology and Cardiology, it has been decided that at this time, the patient is not a candidate for anticoagulation as he is at high risk for hemorrhagic conversion of his multiple infarcts in the brain. The next decision is to repeat a CT scan of the brain to ensure stability within the next 24-48 hours and then contemplate anticoagulation. In the meantime, the patient needs very close watch and neuro checks and I discussed this case with Dr. Haily Mueller, the rehab aid on-call, and he has accepted the patient, but continues to feel that the patient may benefit from transfer to [place] where there is neurosurgical options available. I will let the rehab aid, Dr. Mueller discussed this with the neurologist and then make the decision about transfer to [place]. In the meantime, we will transfer the patient to MICU for being watched very closely for hemorrhagic conversion for the next 48 hours or so and also obtain repeat CT scan of the brain and close neuro checks. In the meantime, he continues to be on IV Ancef per ID. Cardiology continues to follow, CT surgery continues to follow, but at this time even though he has cardioembolic source, it has been decided that anticoagulation should be held at least for the next 48 hours to ensure neurological stability. WALDEMAR/NICOLE Ty Goins M.D. / [id number] CC: Ty Goins M.D.
--- NOTE | ~2016-10-11 | DS ---
Discharge Summary [address] [place]. [address] NAME: ELADIO PETER : 53 STATUS : ADM IN [facility]#: [id number] AGE: 61 ADM/REG DATE : 10/11/16 MR#: [id number] REPORT SERV DATE: 11/10/16 DICTATED BY: LORETA VIZCAINO DATE: 11/09/16 REPORT STATUS : Draft TRANSCRIBED BY: MODL DATE: 11/09/16 ADMISSION DATE: 10/11/2016 DISCHARGE DATE: DISCHARGE DIAGNOSES: 1. Aortic valve endocarditis, status post aortic valve redo, replacement postoperative day 19. 2. 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 3. Encephalopathy, significantly improved. 4. Paroxysmal atrial fibrillation, currently started on Coumadin during this hospitalization. 5. Left lower extremity deep venous thrombosis, status post inferior vena cava filter. 6. Microembolic pulmonary embolism on the CTA of the chest. 7. Chronic systolic congestive heart failure. 8. Diabetes type 2, insulin dependent. 9. Hypertension. 10.Depression. 11.Weakness and debility. PROCEDURE DURING THIS WEEK OF HOSPITALIZATION: None. HOSPITAL COURSE: Please refer to multiple interim discharge summary of Dr. Henry, Dr. Giles, Dr. Bernal, Dr. Vizcaino, Dr. Siegel as well. During the prior week of hospitalization, the patient's encephalopathy has improved significantly. The patient did have a repeat CT scan of the brain without contrast on 11/03/2016 showing stabilization of the occipital infarction bilaterally, more mature, no hemorrhagic transformation, no new bleeding, no new infarcts. As a result during this hospitalization, Neurology has decided the patient could be started on Coumadin. The patient has been started on Coumadin, and he tolerated very well. The patient currently is pending approval for inpatient rehab. There are difficulties with inpatient rehab on Mr. Peter. We are still awaiting and hopefully he will be approved for rehab soon. He is continuing to follow by CT Surgery Dr. Donohue, by Cardiology Dr. Low and Dr. Smart, by Neurology Dr. Gan signed off and Infectious Disease, Dr. Abe Perez. The patient is ready for discharge to go to an inpatient rehab when he is going to be approved with IV antibiotics recommendation as per Dr. Abe Perez. MEDICATIONS AT DISCHARGE: Include Cordarone, vitamin C, aspirin, Lipitor, Ancef, Klonopin, Lexapro, Pepcid, Neurontin, NovoLog sliding scale, Prinivil, melatonin, Lopressor, multivitamin, ointment, MiraLAX, Seroquel, Florastor, Senokot, thiamine, Coumadin sliding scale, Orazinc, and Levemir sliding scale. CF/MODL Loreta Vizcaino M.D. Discharge Summary [address] [address] NAME: ELADIO PETER : 53 STATUS : ADM IN PAT#: [id number] AGE: 61 ADM/REG DATE : 10/11/16 MR#: [id number] REPORT SERV DATE: 11/10/16 DICTATED BY: LORETA VIZCAINO DATE: 11/09/16 REPORT STATUS : Draft TRANSCRIBED BY: MODL DATE: 11/09/16 / [id number] CC: Meggan Mc PANKAJ
--- NOTE | ~2016-10-11 | IDS ---
Interim Discharge Summary [facility] [address] [place]. [address] NAME: ELADIO PETER : 53 STATUS : ADM IN PAT#: [id number] AGE: 61 ADM/REG DATE : 10/11/16 MR#: [id number] REPORT SERV DATE: 10/19/16 DICTATED BY: TY GOINS DATE: 10/19/16 REPORT STATUS : Draft TRANSCRIBED BY: MODL DATE: 10/19/16 ADMISSION DATE: 10/11/2016 DISCHARGE DATE: 10/21/2016 DIAGNOSES: Diagnoses so far, please also see my intermittent discharge summary dictated on 10/15/2016. 1. Bilateral multifocal subacute occipital/PACS SPECIALIST infarct, cardioembolic in origin. 2. The patient has not had any hemorrhagic conversion so far in these infarcts after having being watched in the MICU and then subsequently in the IMCU for several days now, so this is stable. 3. Prosthetic aortic valve endocarditis-the patient is being treated with IV Ancef per Infectious Disease for this. However, the patient does require aortic valve surgery again and aortic valve replacement again, which will be accomplished by Cardiology/Cardiovascular Surgery on 10/21/2016. 4. Chronic intermittent atrial fibrillation for which the patient is on IV heparin now per Cardiology. 5. Mild agitation for which the patient is given Klonopin low dose 0.5 mg three times a day and also given intramuscular Geodon injections and he is doing fairly well with this. 6. History of congenital bicuspid valve-status post aortic valve replacement, which is now infected with vegetations from infective endocarditis and hence requires replacement again, which will be done on Thursday hopefully. 7. Bilateral significant visual field defect secondary to these occipital infarcts. CONSULTS ON THIS CASE: Include Cardiology-Dr. Low; Neurology-Dr. Ahn; and Cardiothoracic Surgery and also Infectious Disease. HOSPITAL COURSE: For hospital course up until 10/15/2016, refer to my interim discharge summary until then. The patient was transferred to MICU for 48 hours on 10/15/2016, and then subsequently transferred to IMCU. The patient did well without developing any hemorrhagic conversion of the multiple cardioembolic strokes that he had in the occipital area. However, since he has multiple serious issues going on, he continues to be watched in the IMCU. The patient is due for a left heart catheterization by Dr. Low on Thursday10/20/2016, and then surgery for aortic valve replacement is planned on Thursday10/21/2016. In the meantime, he continues to be heparinized. He is on full anticoagulant dose of IV heparin per Dr. Low. He became agitated slightly under my care and kept insisting that he go home, to come back for the procedure or he be moved to a regular floor. The patient's requested that he get something for anxiety, and I started him on a low-dose Klonopin 0.5 mg p.o. t.i.d. This helped a little bit, but then he was also given Geodon intramuscular injections by the night PA on-call and he did well with this. Hence, he continues to be on intramuscular injections of Geodon along with the Klonopin and he seems to be doing well and his agitation has significantly improved. So far, he is stable and he does require left heart catheterization and aortic valve replacement again. His leukocytosis is persisting, but I think this will persist as long as his vegetations persist. Infectious Disease continues to follow and continues to have him on IV Ancef for group B beta-hemolytic Streptococcus endocarditis, which is susceptible to Ancef. On October Interim Discharge Summary [address] [address] NAME: ELADIO PETER : 53 STATUS : ADM IN [facility]#: [id number] AGE: 61 ADM/REG DATE : 10/11/16 MR#: [id number] REPORT SERV DATE: 10/19/16 DICTATED BY: TY GOINS DATE: 10/19/16 REPORT STATUS : Draft TRANSCRIBED BY: MODL DATE: 10/19/16 6th, he will be completing day #11 of total dose of IV Ancef so far. He is stable so far. RRA/JAYL Ty Goins M.D. / [id number] CC: Meggan Beaulieu
--- NOTE | ~2016-10-11 | CN ---
Consultation Report [facility] [address] [place]. [address] NAME: ELADIO PETER : 53 STATUS : ADM IN [facility]#: [id number] AGE: 61 ADM/REG DATE : 10/11/16 MR#: [id number] REPORT SERV DATE: 10/14/16 DICTATED BY: JUAN M VELA DATE: 10/14/16 REPORT STATUS : Draft TRANSCRIBED BY: MODL DATE: 10/14/16 CARDIOVASCULAR CONSULTATION DATE OF CONSULTATION: HISTORY OF PRESENT ILLNESS: Mr. Eladio Peter is a 61-year-old gentleman with past medical history significant for congenital bicuspid aortic valve disease, coronary artery disease, and COPD. He is status post aortic valve replacement with one-vessel bypass by Dr. Benitez in 2004. He then had a transaortic valve replacement in 2014 as he was considered to be a high surgical risk for reading. He was admitted three to four weeks ago with suspected endocarditis, but no vegetation was identified. He was treated with aggressive antibiotics for group B Strep bacteremia with improvement. He now re-presents with vision loss. A transesophageal echocardiogram was performed yesterday, which now shows an aortic valve vegetation. PAST MEDICAL HISTORY: As noted above significant for remote aortic valve replacement and one vessel bypass. This patient with subsequent tavern in 2014. He has had a stent in 2005. The patient also with a history of hypertension, hyperlipidemia, and obstructive sleep apnea. He has history of diabetes mellitus type 2. 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 MEDICATIONS: See list. ALLERGIES: THE PATIENT REPORTS ALLERGIES TO SHELL FISH, CODEINE, AND PSEUDOEPHEDRINE. SOCIAL HISTORY: The patient occasionally smokes marijuana. He denies ethanol use. FAMILY HISTORY: Noncontributory. REVIEW OF SYSTEMS: The patient reports occasional vague chest discomfort, but no significant pressure heaviness. He reports his shortness of breath is at baseline. He denies any orthopnea unless he does not wear his CPAP. PHYSICAL EXAMINATION: VITAL SIGNS: Blood pressure 125/63, pulse 97, respiratory rate 22, temperature 98.7. GENERAL: This is a well-developed, well-nourished, obese 61-year-old white male, alert, and oriented x3, in no acute distress. NECK: No jugular venous distention, hepatojugular reflux, or carotid bruits. CARDIOVASCULAR: Previous sternotomy scar is noted. There is a 1/6 systolic murmur heard best at the left upper sternal border. There is no gallop or rub. LUNGS: Clear to auscultation without wheezes, rales, or rhonchi. ABDOMEN: Obese, nontender, nondistended. Positive bowel sounds. EXTREMITIES: Reveals trace lower extremity edema. Consultation Report [address] [place]. [address] NAME: ELADIO PETER : 53 STATUS : ADM IN PAT#: [id number] AGE: 61 ADM/REG DATE : 10/11/16 MR#: [id number] REPORT SERV DATE: 10/14/16 DICTATED BY: JUAN M VELA DATE: 10/14/16 REPORT STATUS : Draft TRANSCRIBED BY: NICOLE DATE: 10/14/16 DATA REVIEWED: EKG shows normal sinus rhythm with first-degree AV block. There is no acute injury or ischemia. A transesophageal echocardiogram has been performed. I have reviewed this as well. It shows a mobile mass on the aortic valve, extremely suspicious for vegetation. LABORATORY DATA: Laboratory is significant for a BUN and creatinine of 8 and 0.8. This represents significant improvement to baseline status post acute renal failure with patient's initial admission last month. ASSESSMENT: 1. Transcatheter aortic valve replacement endocarditis. 2. Remote coronary artery bypass graft with aortic valve replacement secondary to congenital bicuspid. 3. Chronic obstructive pulmonary disease. 4. Paroxysmal atrial fibrillation. 5. Hypertension. 6. Hyperlipidemia. 7. Obstructive sleep apnea. 8. Transcatheter aortic valve replacement, aortic stenosis (peak gradient 47 mmHg with mean gradient 21 mmHg). 9. Recent admission with group B Strep bacteremia and acute renal failure. 10.History of hepatitis C. PLAN: 1. Aggressive antibiotics per ID. 2. Surgical evaluation. This patient represents an extremely high risk for complications with another aortic valve replacement. I have discussed this candidly with the patient and his . 3. We will refer to Cardiothoracic Surgery. We will ask them for operative risk assessment. If all are in agreement and repeat surgery is consider, he would need a left heart catheterization preceding this. I appreciate your consultation on this complex patient. I will follow him closely with you. /NICOLE Juan M Vela M.D., [facility] / [id number] Consultation Report [place] [address] [place]. [address] NAME: ELADIO PETER : 53 STATUS : ADM IN PAT#: [id number] AGE: 61 ADM/REG DATE : 10/11/16 MR#: [id number] REPORT SERV DATE: 10/14/16 DICTATED BY: JUAN M VELA DATE: 10/14/16 REPORT STATUS : Draft TRANSCRIBED BY: NICOLE DATE: 10/14/16 CC: MD YAMIL Rice PANKAJ Paul Cornea, M.D. Richard Morrison, M.D.
--- NOTE | ~2016-10-11 | CN ---
Consultation Report [facility] [address] [place]. [address] NAME: ELADIO PETER : 53 STATUS : ADM IN PAT#: [id number] AGE: 61 ADM/REG DATE : 10/11/16 MR#: [id number] REPORT SERV DATE: 10/14/16 DICTATED BY: SHUBHAM DONOHUE DATE: 10/14/16 REPORT STATUS : Draft TRANSCRIBED BY: MODLuciana DATE: 10/14/16 DATE OF CONSULTATION: CHIEF COMPLAINT: Shortness of breath along with recent CVA. HISTORY OF PRESENT ILLNESS: This is a 61-year-old male that has had a transaortic valvular replacement in 2014, originally having his CAB, and aortic root replacement in 2004. He was admitted on 10/11 on with some slurred speech, as well as some loss of vision and trouble speaking and trouble thinking. He was found to have a subacute infarct of the occipital and subcortical cortex. The patient has been admitted twice since August with an unknown cause. He has had an echo today that does show a mobile density on the ventricular side of the TAVR that is consistent with vegetation along with the aortic valve gradient of 21 mmHg. He also has a patent PFO. We have been consulted now for surgical evaluation. PAST MEDICAL HISTORY: Positive for COPD, positive for paroxysmal atrial fibrillation, positive for hypertension, hyperlipidemia, obstructive sleep apnea, noncompliant, positive for hep C, positive for squamous-cell pharyngeal cancer, positive also for MARY, as well as sepsis in August of 2016. SURGICAL HISTORY: As follows: TAVR in 2014, CAB with aortic root replacement in 2004, also tonsils and adenoidectomy, and a head and neck resection in 2003 for a squamous-cell pharyngeal cancer. He has also had radiation after this surgery. FAMILY HISTORY: Positive for COPD, positive for diabetes, negative for CVAs, positive for hypertension, and negative for CAD. SOCIAL HISTORY: The patient admits to smoking marijuana. He is a former tobacco user. 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 He has a history of illicit drugs including methamphetamines, IV. He is and his is present at the conversation. LABORATORY DATA: Today's labs are as follows: WBCs are 15.5, that is down from 25, H and H are 10.2 and 33.2, and platelet count is 248. Sodium is 132, potassium is 3.8, chloride is 95, BUN is 8, creatinine is 0.80, glucose is 108, alkaline phosphatase is 145 that is down. SGPT is 101, SGOT is 92. LDH is 353. PT is 15. INR is 1.2. ALLERGIES: THE PATIENT IS ALLERGIC TO CODEINE, SHELLFISH, AND PSEUDOEPHEDRINE. REVIEW OF SYSTEMS: A twelve-point review of systems was done and is negative except as above. The patient does continue to have some slurred speech and some trouble with formulating his words. He also continues to have hemianopsia of the right eye. PHYSICAL EXAMINATION: NEURO: Cranial nerves 2 through 12 are grossly intact except for his deficits from his stroke. Consultation Report [address] [place]. [address] NAME: ELADIO PETER : 53 STATUS : ADM IN [facility]#: [id number] AGE: 61 ADM/REG DATE : 10/11/16 MR#: [id number] REPORT SERV DATE: 10/14/16 DICTATED BY: SHUBHAM DONOHUE DATE: 10/14/16 REPORT STATUS : Draft TRANSCRIBED BY: NICOLE DATE: 10/14/16 CV: S1, S2. Regular rate and rhythm. No murmurs, clicks rubs or gallops. HEENT: Normocephalic, atraumatic. Pupils are equal and reactive to light. NECK: Supple. No gross deformities. No JVD is noted. ABDOMEN: Soft, round, hypoactive bowel sounds are noted. LUNGS: Clear, but diminished in the bases. EXTREMITIES: 2+ edema and 1+ pulses. HOME MEDICATIONS: As follows: 1. Proventil two puffs every six hours p.r.n. 2. Norvasc 5 mg p.o. daily. 3. Artificial Tears p.r.n. 4. Adán aspirin 325 daily. 5. Clonidine 0.1 mg twice daily. 6. Clopidogrel 75 mg p.o. daily. 7. Lisinopril 20 mg p.o. daily. 8. Metformin 500 mg daily. 9. Nitroglycerin p.r.n. chest pain. 10.Saw palmetto at bedtime. 11.Simvastatin 20 mg p.o. at bedtime. 12.Testosterone 400 mg IM every two weeks. 13.Symbicort one puff twice daily. The patient is also getting IV drug administrations at home per [facility] since he has episode of sepsis in August of 2016. He is currently on Ancef IV. ASSESSMENT AND PLAN: Aortic valve stenosis with aortic valve vegetation noted on today's echo. I have discussed the high risk of aortic valve replacement, as well as the possibilities of a redo coronary artery bypass with the patient. The STS mortality risk is 4%. Mortality and morbidity risk is 26%. The patient is currently receiving Ancef IV per Infectious Diseases. All risks and benefits of the surgery have been discussed with the and the patient. Prior to any surgery, the patient would need a cardiac cath to assess any recurrent coronary disease. This case will be discussed with Dr. Shubham Donohue. We appreciate the opportunity to participate in the care of this patient. DICTATED BY: CHERYL Stephenson/NICOLE Shubham Donohue M.D. / [id number] CC: Consultation Report [address] [address] NAME: ELADIO PETER : 53 STATUS : ADM IN [facility]#: [id number] AGE: 61 ADM/REG DATE : 10/11/16 MR#: [id number] REPORT SERV DATE: 10/14/16 DICTATED BY: SHUBHAM DONOHUE DATE: 10/14/16 REPORT STATUS : Draft TRANSCRIBED BY: NICOLE DATE: 10/14/16 Meggan Beaulieu PANKAJ
--- NOTE | ~2016-10-11 | IDS ---
Interim Discharge Summary [facility] [address] [place]. [address] NAME: ELADIO PETER : 53 STATUS : ADM IN PAT#: [id number] AGE: 61 ADM/REG DATE : 10/11/16 MR#: [id number] REPORT SERV DATE: 10/24/16 DICTATED BY: J Carlos BERNAL DATE: 10/24/16 REPORT STATUS : Draft TRANSCRIBED BY: MODL DATE: 10/24/16 ADMISSION DATE: 10/11/2016 DISCHARGE DATE: DATE OF INTERIM SUMMARY: 10/24/2016. DIAGNOSES AT TIME OF INTERIM SUMMARY: Bilateral embolic cerebrovascular accidents, posterior circulation; TAVR endocarditis, status post redo aortic valve replacement and CABG x1 and maze procedure; acute encephalopathy, resolving; atrial fibrillation, status post maze procedure; insulin-requiring diabetes; hyperlipidemia; acute blood loss anemia postoperatively, status post transfusion; anxiety disorder; hyperlipidemia. ACTIVE CONSULTATIONS: Cardiothoracic Surgery, Neurology, Infectious Disease. PROCEDURES: On 10/21/2016, the patient underwent redo sternotomy with redo aortic valve replacement and reinflation of the coronary artery. He had a left atrial maze procedure, CABG x1, endovascular vein harvest, and transesophageal echo. BRIEF HOSPITAL COURSE: Continuing on since 10/19/2016, decision has been made after cardiac cath to pursue surgery. The patient underwent a redo valve replacement and CABG with maze procedure on 10/21/2016. The patient has had an uneventful postoperative course. The patient has remained neurologically unchanged. He continues to be followed very closely by Neurology. He is currently unanticoagulated secondary to further risk of bleeding with plans to reinstitute heparin drip on 10/26/2016. If the patient remains clinically stable, he continues on IV Ancef per previous cultures under the guidance of Infectious Disease. The patient's other comorbidities have remained relatively stable from his transition through surgery and back to the cardiac step-down unit. Tentative plans are to begin mobilization with plans for likely rehabilitation the first of next week if everything continues to progress. Significant labs at the time of this interim summary show a white count of 18.1, hemoglobin of 8.2, BUN of 26, creatinine of 1.32. The patient's hospitalist care will be provided by another member of the hospitalist team starting 10/25/2016 with ongoing co-management by Neurology, Cardiothoracic Surgery, Cardiology, and Infectious Disease. NIA/NICOLE J Carlos Bernal M.D. / [id number] CC: J Carlos Bernal M.D.
[~2016-10-11 14:18] MED LIST: ASA5GR PO; ASAB PO; ASABAYER PO; ATEN100 PO; ATEN50 PO; CARD120; CAT1 PO; CAT2 PO; DEPO-TESTOS100 MG/ML IM; DEPO-TESTOS200 MG/ML IM; FLORASTOR250 MG; GLUCPH PO; IMDUR30 PO; LOP100 PO; LOP25 PO; LOSARTAN PO; MICARDIS80 PO; MOBIC7.5 PO; NEUR300 PO; NITROSTAT0.4 MG SL; NORCO1 TA2 PO; NORV5 PO; NTG150 SL; PCET PO; PLAVIX PO; PRIN20 PO; PROAIR HFA PO; PROVHFA INH; ROCEPHIN2 G2 IM; SAW PALMETT2 PO; SYMBICORT 80/4.1 INH PO; TEARS NATURA OPH; TESTOST CYP200 MG/ML IM; TESTOSTERONE IM; ULTRAM50 PO; VISINE0.05 % OPH; X5 PO; ZOCOR20 PO
[2016-10-11 14:43] LABS: HEMATOCRIT 34.5 % (40.0-51.0); HEMOGLOBIN 11.2 g/dL (13.6-17.8); MEAN CORPUS HGB CONC 32.5 g/dL (32.0-36.0); MEAN CORPUSCULAR HEMOGLOB 23.6 pg (26.0-34.0); MEAN CORPUSCULAR VOLUME 72.8 fL (80-100); MEAN PLATELET VOLUME 9.3 fL (9.2-13.0); RBC DISTRIBUTION WIDTH 18.3 % (12.0-16.0); RED CELL COUNT 4.74 10/6/uL (4.7-6.1)
[2016-10-11 14:46] LABS: ER CBC TAT 0 Hrs 09 Mins; PLATELET COUNT 202 10/3/uL (150-400); WHITE BLOOD CELLS 25.9 10/3/uL (4.5-10.5)
[2016-10-11 14:47] LABS: MANUAL DIFF YES %
[2016-10-11 14:50] LABS: INTERNATIONAL NORMAL RATI 1.5 UNITS (-)
[2016-10-11 14:51] LABS: PARTIAL THROMBO TIME 41.8 SEC (22.5-37.2)
[2016-10-11 14:54] LABS: PROTIME (NOT ORD) 17.6 SEC (12.0-14.5)
[2016-10-11 15:01] LABS: A/G RATIO 0.5 (0.7-1.9); ALBUMIN 2.7 G/DL (3.5-5.0); BUN (BLOOD UREA NITROGEN) 22 MG/DL (6-23); CALCIUM, SERUM 8.7 MG/DL (8.5-10.4); CHLORIDE, SERUM 94 MMOL/L (96-112); CO2 (CARBON DIOXIDE) 21 MMOL/L (24-34); GFR AFRICAN AMERICAN 62 ML/MIN (>=60); GFR NON AFRICAN AMERICAN 53 ML/MIN (>=60); GLOBULIN 5.2 G/DL (2.5-4.1); GLUCOSE, SERUM 165 MG/DL (60-99); POTASSIUM, SERUM 4.8 MMOL/L (3.5-5.3); SGOT(AST) 74 U/L (5-40); SGPT(ALT) 131 U/L (5-65); SODIUM, SERUM 127 MMOL/L (135-148); TOTAL PROTEIN 7.9 G/DL (6.0-8.5)
[2016-10-11 15:02] LABS: ACETAMINOPHEN LEVEL (TYLENOL) < 2.0 MCG/ML (10.0-20.0); ALCOHOL < 10 MG/DL (0); ALKALINE PHOSPHATASE 173 U/L (45-117); SALICYLATE < 1.7 MG/DL (-)
[2016-10-11 15:15] LABS: BAND NEUTROPHILS 5 %; ER DIFF TAT 0 Hrs 38 Mins; LYMPHOCYTES 1 %; LYMPHOCYTES ABSOLUTE (CALC) 0.26 10/3/uL (0.67-4.30); MONOCYTES 2 %; MONOCYTES ABSOLUTE (CALC) 0.52 10/3/uL (0.21-1.20); NEUTROPHILS ABSOLUTE (CALC) 25.12 10/3/uL (2.02-8.40); PLATELET ESTIMATE ADQ (ADEQUATE); SEGMENTED NEUTROPHIL (0) 92 %; TOTAL NUCLEATED CELLS 100
[2016-10-11 15:16] LABS: ANISOCYTOSIS 1+ (5-10/OIF) (0-5/OIF)
[2016-10-11] MEDS ORDERED: PROAIR HFA INH (15:16)
[2016-10-11 15:17] LABS: BURR CELLS 1+ (3-10/OIF) (0-2/OIF)
[2016-10-11] MEDS ORDERED: ASABAYER PO (15:17)
[2016-10-11] MEDS ORDERED: SYMBICORT 80/4.1 INH INH (15:17)
[2016-10-11] MEDS ORDERED: CEFAZ1 IV (15:19)
[2016-10-11] MEDS ORDERED: CARDCD120 PO (15:19)
[2016-10-11] MEDS ORDERED: NEUR300 PO (15:20)
[2016-10-11] MEDS ORDERED: LOP100 PO (15:21)
[2016-10-11] MEDS ORDERED: FLORASTOR250 MG PO (15:21)
[2016-10-11] MEDS ORDERED: NITROSTAT0.4 MG SL (15:21)
[2016-10-11] MEDS ORDERED: SAW PALMETT2 PO (15:22)
[2016-10-11] MEDS ORDERED: TESTOSTERONE IM (15:22)
[2016-10-11] MEDS ORDERED: NOVOLOG SC (15:23)
[2016-10-11] MEDS ORDERED: VISINE TEARS15 ML OPH (15:23)
[2016-10-11] MEDS ORDERED: PRIN20 PO (15:24)
[2016-10-11] MEDS ORDERED: ZOCOR20 PO (15:24)
[2016-10-11] MEDS ORDERED: IMDUR30 PO (15:25)
[2016-10-11] MEDS ORDERED: NORV5 PO (15:25)
[2016-10-11 15:26] LABS: ACETONE NEG
[2016-10-11 15:50] LABS: ASCORBIC ACID (UR NOT ORDER) NEG (NEG); BILIRUBIN, URINE NEGATIVE (NEG); ER URINALYSIS TAT 0 Hrs 11 Mins; KETONE, URINE TRACE MG/DL (NEG); LEUKOCYTE ESTERASE(NOT OR NEG (NEG); NITRITE (URINE) NEG (NEG); WBC (NOT ORDERED) (RFLEX) 1 (0-5)
[2016-10-11 16:15] LABS: AMPHETAMINES (NOT ORD) NEG (NEG); BARBITURATES (NOT ORDERED NEG (NEG); BENZODIAZEPINES (NOT ORD) NEG (NEG); CANNABINOIDS (THC) POS (NEG); COCAINE (NOT ORDERED) NEG (NEG); OPIATES NEG (NEG); PHENCYCLIDINE(PCP) NEG (NEG); TRICYCLICS NEG (NEG)
[2016-10-11 16:23] LABS: ALLENS TEST Pos; BE (BASE EXCESS) -4.4 MEQ/L (0 +/- 2.5); CARBOXYHEMOGLOBIN 1.1 % (0-3); HCO3 (ACTUAL BICARBONATE) 18.2 MEQ/L (23-27); HEMOBLOGIN CONTENT 12.2 G/DL (14-18); INSTRUMENT SERIAL # 8087; METHEMOGLOBIN 0.3 % (0-3); O2 CONTENT 16.4 VOL% (18-24); PCO2 (CO2 TENSION) 27 MMHG (35-45); PO2 (O2 TENSION) 86 MMHG (79-93); SAMPLE Arterial; pH 7.45 (7.37-7.43)
[2016-10-11 21:25] LABS: PROCALCITONIN 1.32 ng/mL (<0.5)
[2016-10-12 06:29] LABS: INTERNATIONAL NORMAL RATI 1.4 UNITS (-); PROTIME (NOT ORD) 16.7 SEC (12.0-14.5)
[2016-10-12 06:30] LABS: PARTIAL THROMBO TIME 34.6 SEC (22.5-37.2)
[2016-10-12 06:42] LABS: BASOPHILS 0.1 %; BASOPHILS ABSOLUTE 0.02 10/3/uL (0.0-0.16); EOSINOPHILS 0 %; EOSINOPHILS ABSOLUTE 0.01 10/3/uL (0.0-0.53); HEMATOCRIT 34.7 % (40.0-51.0); HEMOGLOBIN 11.4 g/dL (13.6-17.8); IMMATURE GRANULOCYTES ABSOLUTE 0.23 10/3/uL (0.0-0.11); LYMPHOCYTES 3.6 %; LYMPHOCYTES ABSOLUTE 0.82 10/3/uL (0.67-4.30); MEAN CORPUS HGB CONC 32.9 g/dL (32.0-36.0); MEAN CORPUSCULAR VOLUME 73.1 fL (80-100); MEAN PLATELET VOLUME 9.2 fL (9.2-13.0); MONOCYTES 9.7 %; MONOCYTES ABSOLUTE 2.18 10/3/uL (0.21-1.20); NEUTROPHILS 85.6 %; NEUTROPHILS ABSOLUTE 19.22 10/3/uL (2.02-8.40); PLATELET COUNT 206 10/3/uL (150-400); RBC DISTRIBUTION WIDTH 18.4 % (12.0-16.0); RED CELL COUNT 4.75 10/6/uL (4.7-6.1); WHITE BLOOD CELLS 22.5 10/3/uL (4.5-10.5)
[2016-10-12 06:49] LABS: MANUAL DIFF NO %
[2016-10-12 07:34] LABS: SED RATE 33 MM/HR (0-15)
[2016-10-12 08:04] LABS: BUN (BLOOD UREA NITROGEN) 13 MG/DL (6-23); CALCIUM, SERUM 8.9 MG/DL (8.5-10.4); CHLORIDE, SERUM 96 MMOL/L (96-112); CO2 (CARBON DIOXIDE) 18 MMOL/L (24-34); CREATININE 0.89 MG/DL (0.70-1.30); FOLATE 5.3 NG/ML (>5.2); FREE T4 1.43 NG/DL (0.76-1.46); GFR AFRICAN AMERICAN 106 ML/MIN (>=60); GFR NON AFRICAN AMERICAN 92 ML/MIN (>=60); GLUCOSE, SERUM 153 MG/DL (60-99); POTASSIUM, SERUM 4.5 MMOL/L (3.5-5.3); SODIUM, SERUM 129 MMOL/L (135-148)
[2016-10-13 06:01] LABS: BASOPHILS 0.2 %; BASOPHILS ABSOLUTE 0.04 10/3/uL (0.0-0.16); EOSINOPHILS 0.3 %; EOSINOPHILS ABSOLUTE 0.05 10/3/uL (0.0-0.53); HEMATOCRIT 35.3 % (40.0-51.0); HEMOGLOBIN 11.4 g/dL (13.6-17.8); IMMATURE GRANULOCYTES 1.2 %; IMMATURE GRANULOCYTES ABSOLUTE 0.23 10/3/uL (0.0-0.11); LYMPHOCYTES 5.5 %; LYMPHOCYTES ABSOLUTE 1.08 10/3/uL (0.67-4.30); MEAN CORPUS HGB CONC 32.3 g/dL (32.0-36.0); MEAN CORPUSCULAR HEMOGLOB 23.8 pg (26.0-34.0); MEAN CORPUSCULAR VOLUME 73.7 fL (80-100); MEAN PLATELET VOLUME 9.3 fL (9.2-13.0); MONOCYTES 9.1 %; MONOCYTES ABSOLUTE 1.77 10/3/uL (0.21-1.20); NEUTROPHILS 83.7 %; NEUTROPHILS ABSOLUTE 16.29 10/3/uL (2.02-8.40); PLATELET COUNT 195 10/3/uL (150-400); RBC DISTRIBUTION WIDTH 18.6 % (12.0-16.0); RED CELL COUNT 4.79 10/6/uL (4.7-6.1); WHITE BLOOD CELLS 19.5 10/3/uL (4.5-10.5)
[2016-10-13 06:03] LABS: MANUAL DIFF NO %
[2016-10-13 06:14] LABS: A/G RATIO 0.5 (0.7-1.9); ALBUMIN 2.5 G/DL (3.5-5.0); ALKALINE PHOSPHATASE 181 U/L (45-117); BUN (BLOOD UREA NITROGEN) 10 MG/DL (6-23); CALCIUM, SERUM 8.8 MG/DL (8.5-10.4); CHLORIDE, SERUM 93 MMOL/L (96-112); CHOL/HDL RATIO(NOT ORDER) 3.1 (0-5); CHOLESTEROL 116 MG/DL (< 200); CO2 (CARBON DIOXIDE) 20 MMOL/L (24-34); CREATININE 0.76 MG/DL (0.70-1.30); GFR AFRICAN AMERICAN 113 ML/MIN (>=60); GFR NON AFRICAN AMERICAN 98 ML/MIN (>=60); GLUCOSE, SERUM 131 MG/DL (60-99); HDL CHOLESTEROL 38 MG/DL (> 39); LDL CHOLESTEROL 60 MG/DL (< 130); NON-HDL CHOLESTEROL 78 MG/DL (< 160); PHOSPHORUS, SERUM 2.7 MG/DL (2.5-4.5); POTASSIUM, SERUM 3.9 MMOL/L (3.5-5.3); SGOT(AST) 69 U/L (5-40); SGPT(ALT) 97 U/L (5-65); SODIUM, SERUM 126 MMOL/L (135-148); TOTAL BILIRUBIN 0.9 MG/DL (0-1.2); TOTAL PROTEIN 7.5 G/DL (6.0-8.5)
[2016-10-13 06:16] LABS: TRIGLYCERIDE 94 MG/DL (< 150)
[2016-10-13 08:11] LABS: ANA TITER <1:40 TITER
[2016-10-13 08:30] LABS: INTERNATIONAL NORMAL RATI 1.2 UNITS (-); PROTIME (NOT ORD) 15.3 SEC (12.0-14.5)
[2016-10-13 09:13] LABS: INTERNATIONAL NORMAL RATI 1.2 UNITS (-); PARTIAL THROMBO TIME 30.7 SEC (22.5-37.2)
[2016-10-13 17:56] LABS: ASCORBIC ACID (UR NOT ORDER) NEG (NEG); BILIRUBIN, URINE NEGATIVE (NEG); KETONE, URINE 80 MG/DL (NEG); LEUKOCYTE ESTERASE(NOT OR NEG (NEG); WBC (NOT ORDERED) (RFLEX) 21 (0-5)
[2016-10-14 07:24] LABS: BASOPHILS 0.2 %; BASOPHILS ABSOLUTE 0.03 10/3/uL (0.0-0.16); EOSINOPHILS 0.8 %; EOSINOPHILS ABSOLUTE 0.12 10/3/uL (0.0-0.53); HEMATOCRIT 33.2 % (40.0-51.0); HEMOGLOBIN 10.7 g/dL (13.6-17.8); IMMATURE GRANULOCYTES 1.1 %; IMMATURE GRANULOCYTES ABSOLUTE 0.17 10/3/uL (0.0-0.11); LYMPHOCYTES 6.2 %; LYMPHOCYTES ABSOLUTE 0.96 10/3/uL (0.67-4.30); MEAN CORPUS HGB CONC 32.2 g/dL (32.0-36.0); MEAN CORPUSCULAR HEMOGLOB 23.6 pg (26.0-34.0); MEAN CORPUSCULAR VOLUME 73.1 fL (80-100); MEAN PLATELET VOLUME 9.7 fL (9.2-13.0); MONOCYTES 10.3 %; NEUTROPHILS 81.4 %; PLATELET COUNT 248 10/3/uL (150-400); RBC DISTRIBUTION WIDTH 18.6 % (12.0-16.0); RED CELL COUNT 4.54 10/6/uL (4.7-6.1); WHITE BLOOD CELLS 15.5 10/3/uL (4.5-10.5)
[2016-10-14 07:28] LABS: MANUAL DIFF NO %
[2016-10-14 07:36] LABS: A/G RATIO 0.4 (0.7-1.9); ALBUMIN 2.2 G/DL (3.5-5.0); BUN (BLOOD UREA NITROGEN) 8 MG/DL (6-23); CALCIUM, SERUM 8.6 MG/DL (8.5-10.4); CHLORIDE, SERUM 95 MMOL/L (96-112); GFR AFRICAN AMERICAN 111 ML/MIN (>=60); GFR NON AFRICAN AMERICAN 96 ML/MIN (>=60); GLOBULIN 5.2 G/DL (2.5-4.1); GLUCOSE, SERUM 108 MG/DL (60-99); PHOSPHORUS, SERUM 3.2 MG/DL (2.5-4.5); POTASSIUM, SERUM 3.8 MMOL/L (3.5-5.3); SGOT(AST) 92 U/L (5-40); SGPT(ALT) 101 U/L (5-65); SODIUM, SERUM 132 MMOL/L (135-148); TOTAL BILIRUBIN 0.9 MG/DL (0-1.2); TOTAL PROTEIN 7.4 G/DL (6.0-8.5)
[2016-10-14 07:37] LABS: ALKALINE PHOSPHATASE 145 U/L (45-117); CO2 (CARBON DIOXIDE) 25 MMOL/L (24-34)
[2016-10-15 06:14] LABS: BASOPHILS 0.1 %; BASOPHILS ABSOLUTE 0.02 10/3/uL (0.0-0.16); EOSINOPHILS 1.1 %; EOSINOPHILS ABSOLUTE 0.15 10/3/uL (0.0-0.53); HEMATOCRIT 32.3 % (40.0-51.0); HEMOGLOBIN 10.5 g/dL (13.6-17.8); IMMATURE GRANULOCYTES 1.6 %; IMMATURE GRANULOCYTES ABSOLUTE 0.22 10/3/uL (0.0-0.11); LYMPHOCYTES 5.4 %; LYMPHOCYTES ABSOLUTE 0.74 10/3/uL (0.67-4.30); MEAN CORPUS HGB CONC 32.5 g/dL (32.0-36.0); MEAN CORPUSCULAR HEMOGLOB 23.9 pg (26.0-34.0); MEAN CORPUSCULAR VOLUME 73.4 fL (80-100); MEAN PLATELET VOLUME 9.1 fL (9.2-13.0); MONOCYTES 10.9 %; NEUTROPHILS 80.9 %; NEUTROPHILS ABSOLUTE 11.09 10/3/uL (2.02-8.40); PLATELET COUNT 244 10/3/uL (150-400); RBC DISTRIBUTION WIDTH 18.2 % (12.0-16.0); WHITE BLOOD CELLS 13.7 10/3/uL (4.5-10.5)
[2016-10-15 06:15] LABS: MANUAL DIFF NO %
[2016-10-15 06:18] LABS: BUN (BLOOD UREA NITROGEN) 9 MG/DL (6-23); CALCIUM, SERUM 8.3 MG/DL (8.5-10.4); CHLORIDE, SERUM 96 MMOL/L (96-112); CO2 (CARBON DIOXIDE) 26 MMOL/L (24-34); CREATININE 0.91 MG/DL (0.70-1.30); GFR AFRICAN AMERICAN 104 ML/MIN (>=60); GFR NON AFRICAN AMERICAN 90 ML/MIN (>=60); POTASSIUM, SERUM 3.7 MMOL/L (3.5-5.3); SODIUM, SERUM 131 MMOL/L (135-148)
[2016-10-15 06:19] LABS: GLUCOSE, SERUM 143 MG/DL (60-99)
[2016-10-15 12:39] LABS: INTERNATIONAL NORMAL RATI 1.1 UNITS (-); PARTIAL THROMBO TIME 31.8 SEC (22.5-37.2); PROTIME (NOT ORD) 14.2 SEC (12.0-14.5)
[2016-10-16 04:01] LABS: BE (BASE EXCESS) -0.4 MEQ/L (0 +/- 2.5); CARBOXYHEMOGLOBIN 0.1 % (0-3); HCO3 (ACTUAL BICARBONATE) 22.2 MEQ/L (23-27); HEMOBLOGIN CONTENT 11.3 G/DL (14-18); INSTRUMENT SERIAL # 35151; METHEMOGLOBIN 0.6 % (0-3); O2 CONTENT 14.9 VOL% (18-24); OPERATOR ID 33214; PCO2 (CO2 TENSION) 30 MMHG (35-45); PO2 (O2 TENSION) 71 MMHG (79-93); SAMPLE Arterial; pH 7.49 (7.37-7.43)
[2016-10-16 04:02] LABS: BASOPHILS 0.3 %; BASOPHILS ABSOLUTE 0.04 10/3/uL (0.0-0.16); EOSINOPHILS 1.5 %; EOSINOPHILS ABSOLUTE 0.23 10/3/uL (0.0-0.53); HEMATOCRIT 32.8 % (40.0-51.0); HEMOGLOBIN 10.4 g/dL (13.6-17.8); IMMATURE GRANULOCYTES 1.6 %; IMMATURE GRANULOCYTES ABSOLUTE 0.25 10/3/uL (0.0-0.11); LYMPHOCYTES 7.5 %; LYMPHOCYTES ABSOLUTE 1.18 10/3/uL (0.67-4.30); MANUAL DIFF NO %; MEAN CORPUS HGB CONC 31.7 g/dL (32.0-36.0); MEAN CORPUSCULAR HEMOGLOB 23.1 pg (26.0-34.0); MEAN CORPUSCULAR VOLUME 72.7 fL (80-100); MEAN PLATELET VOLUME 9.3 fL (9.2-13.0); MONOCYTES 9.9 %; MONOCYTES ABSOLUTE 1.56 10/3/uL (0.21-1.20); NEUTROPHILS 79.2 %; NEUTROPHILS ABSOLUTE 12.52 10/3/uL (2.02-8.40); PLATELET COUNT 263 10/3/uL (150-400); RBC DISTRIBUTION WIDTH 18.1 % (12.0-16.0); RED CELL COUNT 4.51 10/6/uL (4.7-6.1); WHITE BLOOD CELLS 15.8 10/3/uL (4.5-10.5)
[2016-10-16 04:12] LABS: BUN (BLOOD UREA NITROGEN) 9 MG/DL (6-23); CALCIUM, SERUM 8.5 MG/DL (8.5-10.4); CHLORIDE, SERUM 93 MMOL/L (96-112); CO2 (CARBON DIOXIDE) 25 MMOL/L (24-34); GFR AFRICAN AMERICAN 106 ML/MIN (>=60); GFR NON AFRICAN AMERICAN 91 ML/MIN (>=60); GLUCOSE, SERUM 130 MG/DL (60-99); POTASSIUM, SERUM 3.7 MMOL/L (3.5-5.3); SODIUM, SERUM 129 MMOL/L (135-148)
[2016-10-16 06:43] LABS: ANISOCYTOSIS 1+ (5-10/OIF) (0-5/OIF); BAND NEUTROPHILS 4 %; EOSINOPHILS 1 %; EOSINOPHILS ABSOLUTE (CALC) 0.16 10/3/uL (0.0-0.53); IMMATURE GRANS ABSOLUTE (CALC) 0.16 10/3/uL (0.0-0.11); LYMPHOCYTES 9 %; LYMPHOCYTES ABSOLUTE (CALC) 1.42 10/3/uL (0.67-4.30); METAMYELOCYTES 1 %; MONOCYTES 12 %; NEUTROPHILS ABSOLUTE (CALC) 12.17 10/3/uL (2.02-8.40); PLATELET ESTIMATE ADQ (ADEQUATE); POLYCHROMASIA 1+ (2-5/OIF) (0-1/OIF); SEGMENTED NEUTROPHIL (0) 73 %; TOTAL NUCLEATED CELLS 100
[2016-10-16 06:44] LABS: HYPOCHROMIA 1+ (3-10/OIF) (0-2/OIF); TEARDROP SHAPED RBCS OCC (0-2/OIF); TOXIC GRANULATION 1+; VACUOLATED NEUTROPHILES OCC
[2016-10-16 21:38] LABS: CPK 61 U/L (0-200)
[2016-10-16 21:39] LABS: CK-MB < 0.5 NG/ML
[2016-10-17 04:25] LABS: BASOPHILS 0.1 %; BASOPHILS ABSOLUTE 0.02 10/3/uL (0.0-0.16); EOSINOPHILS 2.7 %; EOSINOPHILS ABSOLUTE 0.38 10/3/uL (0.0-0.53); HEMATOCRIT 33.1 % (40.0-51.0); HEMOGLOBIN 10.8 g/dL (13.6-17.8); IMMATURE GRANULOCYTES 1.7 %; IMMATURE GRANULOCYTES ABSOLUTE 0.24 10/3/uL (0.0-0.11); LYMPHOCYTES 8.4 %; LYMPHOCYTES ABSOLUTE 1.17 10/3/uL (0.67-4.30); MEAN CORPUS HGB CONC 32.6 g/dL (32.0-36.0); MEAN CORPUSCULAR VOLUME 73.6 fL (80-100); MEAN PLATELET VOLUME 8.8 fL (9.2-13.0); MONOCYTES 9.1 %; MONOCYTES ABSOLUTE 1.26 10/3/uL (0.21-1.20); NEUTROPHILS ABSOLUTE 10.82 10/3/uL (2.02-8.40); PLATELET COUNT 237 10/3/uL (150-400); WHITE BLOOD CELLS 13.9 10/3/uL (4.5-10.5)
[2016-10-17 04:27] LABS: MANUAL DIFF NO %
[2016-10-17 04:41] LABS: ALBUMIN 2.4 G/DL (3.5-5.0); BUN (BLOOD UREA NITROGEN) 11 MG/DL (6-23); CALCIUM, SERUM 8.5 MG/DL (8.5-10.4); CHLORIDE, SERUM 95 MMOL/L (96-112); CO2 (CARBON DIOXIDE) 27 MMOL/L (24-34); CREATININE 0.99 MG/DL (0.70-1.30); GFR AFRICAN AMERICAN 94 ML/MIN (>=60); GFR NON AFRICAN AMERICAN 81 ML/MIN (>=60); GLUCOSE, SERUM 152 MG/DL (60-99); PHOSPHORUS, SERUM 3.5 MG/DL (2.5-4.5); POTASSIUM, SERUM 3.8 MMOL/L (3.5-5.3); SODIUM, SERUM 130 MMOL/L (135-148)
[2016-10-17 20:12] LABS: PROTEIN C ACTIVITY 93 % (70-145); PROTEIN S ACTIVITY 129 % (69-161)
[2016-10-18 05:24] LABS: BASOPHILS 0.2 %; BASOPHILS ABSOLUTE 0.04 10/3/uL (0.0-0.16); EOSINOPHILS 2.1 %; EOSINOPHILS ABSOLUTE 0.35 10/3/uL (0.0-0.53); HEMATOCRIT 33.6 % (40.0-51.0); HEMOGLOBIN 10.8 g/dL (13.6-17.8); IMMATURE GRANULOCYTES 1.8 %; IMMATURE GRANULOCYTES ABSOLUTE 0.31 10/3/uL (0.0-0.11); LYMPHOCYTES 8.5 %; LYMPHOCYTES ABSOLUTE 1.44 10/3/uL (0.67-4.30); MANUAL DIFF NO %; MEAN CORPUS HGB CONC 32.1 g/dL (32.0-36.0); MEAN CORPUSCULAR HEMOGLOB 23.9 pg (26.0-34.0); MEAN CORPUSCULAR VOLUME 74.5 fL (80-100); MEAN PLATELET VOLUME 9.3 fL (9.2-13.0); MONOCYTES 7.9 %; MONOCYTES ABSOLUTE 1.34 10/3/uL (0.21-1.20); NEUTROPHILS 79.5 %; NEUTROPHILS ABSOLUTE 13.45 10/3/uL (2.02-8.40); PLATELET COUNT 255 10/3/uL (150-400); RBC DISTRIBUTION WIDTH 18.3 % (12.0-16.0); RED CELL COUNT 4.51 10/6/uL (4.7-6.1); WHITE BLOOD CELLS 16.9 10/3/uL (4.5-10.5)
[2016-10-18 05:31] LABS: BUN (BLOOD UREA NITROGEN) 9 MG/DL (6-23); CALCIUM, SERUM 8.7 MG/DL (8.5-10.4); CHLORIDE, SERUM 95 MMOL/L (96-112); CO2 (CARBON DIOXIDE) 24 MMOL/L (24-34); GFR AFRICAN AMERICAN 106 ML/MIN (>=60); GFR NON AFRICAN AMERICAN 91 ML/MIN (>=60); GLUCOSE, SERUM 148 MG/DL (60-99); SODIUM, SERUM 131 MMOL/L (135-148)
[2016-10-18 05:32] LABS: POTASSIUM, SERUM 4.2 MMOL/L (3.5-5.3)
[2016-10-19 03:41] LABS: BASOPHILS 0.3 %; BASOPHILS ABSOLUTE 0.04 10/3/uL (0.0-0.16); EOSINOPHILS 3.5 %; EOSINOPHILS ABSOLUTE 0.44 10/3/uL (0.0-0.53); HEMATOCRIT 32.3 % (40.0-51.0); HEMOGLOBIN 10.4 g/dL (13.6-17.8); IMMATURE GRANULOCYTES 1.8 %; IMMATURE GRANULOCYTES ABSOLUTE 0.23 10/3/uL (0.0-0.11); LYMPHOCYTES 11.8 %; LYMPHOCYTES ABSOLUTE 1.49 10/3/uL (0.67-4.30); MEAN CORPUS HGB CONC 32.2 g/dL (32.0-36.0); MEAN CORPUSCULAR HEMOGLOB 24.4 pg (26.0-34.0); MEAN CORPUSCULAR VOLUME 75.6 fL (80-100); MEAN PLATELET VOLUME 8.9 fL (9.2-13.0); MONOCYTES 6.1 %; MONOCYTES ABSOLUTE 0.77 10/3/uL (0.21-1.20); NEUTROPHILS 76.5 %; NEUTROPHILS ABSOLUTE 9.65 10/3/uL (2.02-8.40); PLATELET COUNT 214 10/3/uL (150-400); RBC DISTRIBUTION WIDTH 18.6 % (12.0-16.0); RED CELL COUNT 4.27 10/6/uL (4.7-6.1); WHITE BLOOD CELLS 12.6 10/3/uL (4.5-10.5)
[2016-10-19 03:42] LABS: MANUAL DIFF NO %
[2016-10-19 03:53] LABS: BUN (BLOOD UREA NITROGEN) 9 MG/DL (6-23); CALCIUM, SERUM 8.4 MG/DL (8.5-10.4); CHLORIDE, SERUM 96 MMOL/L (96-112); CO2 (CARBON DIOXIDE) 26 MMOL/L (24-34); CREATININE 0.92 MG/DL (0.70-1.30); GFR AFRICAN AMERICAN 103 ML/MIN (>=60); GFR NON AFRICAN AMERICAN 89 ML/MIN (>=60); GLUCOSE, SERUM 149 MG/DL (60-99); POTASSIUM, SERUM 4.1 MMOL/L (3.5-5.3); SODIUM, SERUM 135 MMOL/L (135-148)
[2016-10-19 22:22] LABS: TROPONIN I 0.21 NG/ML (<0.05)
[2016-10-21 01:44] LABS: BASOPHILS 0.1 %; BASOPHILS ABSOLUTE 0.02 10/3/uL (0.0-0.16); EOSINOPHILS 1.8 %; EOSINOPHILS ABSOLUTE 0.25 10/3/uL (0.0-0.53); HEMATOCRIT 29.9 % (40.0-51.0); HEMOGLOBIN 9.6 g/dL (13.6-17.8); IMMATURE GRANULOCYTES 1.2 %; IMMATURE GRANULOCYTES ABSOLUTE 0.17 10/3/uL (0.0-0.11); LYMPHOCYTES 7.6 %; LYMPHOCYTES ABSOLUTE 1.06 10/3/uL (0.67-4.30); MANUAL DIFF NO %; MEAN CORPUS HGB CONC 32.1 g/dL (32.0-36.0); MEAN CORPUSCULAR HEMOGLOB 24.1 pg (26.0-34.0); MEAN CORPUSCULAR VOLUME 75.1 fL (80-100); MEAN PLATELET VOLUME 8.9 fL (9.2-13.0); MONOCYTES 7.8 %; MONOCYTES ABSOLUTE 1.08 10/3/uL (0.21-1.20); NEUTROPHILS 81.5 %; NEUTROPHILS ABSOLUTE 11.31 10/3/uL (2.02-8.40); PLATELET COUNT 215 10/3/uL (150-400); RBC DISTRIBUTION WIDTH 18.9 % (12.0-16.0); RED CELL COUNT 3.98 10/6/uL (4.7-6.1); WHITE BLOOD CELLS 13.9 10/3/uL (4.5-10.5)
[2016-10-21 01:51] LABS: INTERNATIONAL NORMAL RATI 1.1 UNITS (-); PARTIAL THROMBO TIME 33.7 SEC (22.5-37.2); PROTIME (NOT ORD) 14.4 SEC (12.0-14.5)
[2016-10-21 06:49] LABS: % IRON SAT 10 % (20-50); A/G RATIO 0.5 (0.7-1.9); ALBUMIN 2.2 G/DL (3.5-5.0); ALKALINE PHOSPHATASE 97 U/L (45-117); BUN (BLOOD UREA NITROGEN) 10 MG/DL (6-23); CALCIUM, SERUM 8.3 MG/DL (8.5-10.4); CHLORIDE, SERUM 97 MMOL/L (96-112); CO2 (CARBON DIOXIDE) 25 MMOL/L (24-34); CREATININE 1.04 MG/DL (0.70-1.30); GFR AFRICAN AMERICAN 89 ML/MIN (>=60); GFR NON AFRICAN AMERICAN 77 ML/MIN (>=60); GLOBULIN 4.4 G/DL (2.5-4.1); GLUCOSE, SERUM 147 MG/DL (60-99); IRON BINDING CAPACITY 309 MCG/DL (250-450); IRON, SERUM 32 MCG/DL (35-150); POTASSIUM, SERUM 4.1 MMOL/L (3.5-5.3); SGOT(AST) 100 U/L (5-40); SGPT(ALT) 55 U/L (5-65); SODIUM, SERUM 133 MMOL/L (135-148); TOTAL BILIRUBIN 0.8 MG/DL (0-1.2); TOTAL PROTEIN 6.6 G/DL (6.0-8.5)
[2016-10-21 20:03] LABS: TEG - ANGLE 72.3 DEG (53-72); TEG - COAGULATION INDEX 0.6 (-3 TO 3); TEG - MAXIMUM AMPLITUDE 66.3 MM (50-70); TEG - RATE 7.2 MIN (5.0-10.0)
[2016-10-21 20:38] LABS: BE (BASE EXCESS) -8.7 MEQ/L (0 +/- 2.5); CARBOXYHEMOGLOBIN 0.4 % (0-3); HCO3 (ACTUAL BICARBONATE) 18.6 MEQ/L (23-27); INSTRUMENT SERIAL # 11843; METHEMOGLOBIN 1.2 % (0-3); MODE SIMV; O2 CONTENT 12.9 VOL% (18-24); OPERATOR ID 16469; PCO2 (CO2 TENSION) 47 MMHG (35-45); PO2 (O2 TENSION) 246 MMHG (79-93); SAMPLE Arterial; TIDAL VOLUME 800 ML; pH 7.22 (7.37-7.43)
[2016-10-21 20:53] LABS: HEMATOCRIT 25.6 % (40.0-51.0); HEMOGLOBIN 8.1 g/dL (13.6-17.8); MEAN CORPUS HGB CONC 31.6 g/dL (32.0-36.0); MEAN CORPUSCULAR HEMOGLOB 24.4 pg (26.0-34.0); MEAN CORPUSCULAR VOLUME 77.1 fL (80-100); PLATELET COUNT 131 10/3/uL (150-400); RBC DISTRIBUTION WIDTH 18.7 % (12.0-16.0); RED CELL COUNT 3.32 10/6/uL (4.7-6.1); WHITE BLOOD CELLS 26.1 10/3/uL (4.5-10.5)
[2016-10-21 20:55] LABS: MANUAL DIFF YES %
[2016-10-21 20:59] LABS: INTERNATIONAL NORMAL RATI 1.7 UNITS (-); PARTIAL THROMBO TIME 39.7 SEC (22.5-37.2)
[2016-10-21 21:07] LABS: CHLORIDE, SERUM 104 MMOL/L (96-112); CO2 (CARBON DIOXIDE) 24 MMOL/L (24-34); GFR AFRICAN AMERICAN 62 ML/MIN (>=60); GFR NON AFRICAN AMERICAN 53 ML/MIN (>=60); SGPT(ALT) 32 U/L (5-65); SODIUM, SERUM 137 MMOL/L (135-148); TOTAL PROTEIN 5.3 G/DL (6.0-8.5)
[2016-10-21 21:08] LABS: A/G RATIO 1.3 (0.7-1.9); ALKALINE PHOSPHATASE 58 U/L (45-117); BUN (BLOOD UREA NITROGEN) 16 MG/DL (6-23); CALCIUM, SERUM 6.9 MG/DL (8.5-10.4); GLOBULIN 2.3 G/DL (2.5-4.1); GLUCOSE, SERUM 103 MG/DL (60-99); POTASSIUM, SERUM 4.9 MMOL/L (3.5-5.3); SGOT(AST) 118 U/L (5-40); TOTAL BILIRUBIN 2.4 MG/DL (0-1.2)
[2016-10-21 21:11] LABS: BAND NEUTROPHILS 19 %; LYMPHOCYTES 3 %; LYMPHOCYTES ABSOLUTE (CALC) 0.78 10/3/uL (0.67-4.30); NEUTROPHILS ABSOLUTE (CALC) 25.32 10/3/uL (2.02-8.40); SEGMENTED NEUTROPHIL (0) 78 %; TOTAL NUCLEATED CELLS 100
[2016-10-21 21:12] LABS: ANISOCYTOSIS 1+ (5-10/OIF) (0-5/OIF); ELLIPTOCYTES 1+ (3-10/OIF) (0-2/OIF)
[2016-10-21 21:13] LABS: BURR CELLS 1+ (3-10/OIF) (0-2/OIF)
[2016-10-21 21:14] LABS: PLATELET ESTIMATE SLT DEC (ADEQUATE)
[2016-10-22 00:42] LABS: HEMATOCRIT 25.5 % (40.0-51.0); HEMOGLOBIN 7.8 g/dL (13.6-17.8)
[2016-10-22 00:55] LABS: CALCIUM, SERUM 8.1 MG/DL (8.5-10.4); CHLORIDE, SERUM 102 MMOL/L (96-112); CO2 (CARBON DIOXIDE) 22 MMOL/L (24-34); SODIUM, SERUM 136 MMOL/L (135-148)
[2016-10-22 00:56] LABS: BUN (BLOOD UREA NITROGEN) 22 MG/DL (6-23); CREATININE 1.55 MG/DL (0.70-1.30); GFR AFRICAN AMERICAN 55 ML/MIN (>=60); GFR NON AFRICAN AMERICAN 47 ML/MIN (>=60); GLUCOSE, SERUM 222 MG/DL (60-99); POTASSIUM, SERUM 6.3 MMOL/L (3.5-5.3)
[2016-10-22 03:38] LABS: BE (BASE EXCESS) -7.3 MEQ/L (0 +/- 2.5); CARBOXYHEMOGLOBIN 0.2 % (0-3); HCO3 (ACTUAL BICARBONATE) 20.1 MEQ/L (23-27); HEMOBLOGIN CONTENT 8.6 G/DL (14-18); INSTRUMENT SERIAL # 11843; METHEMOGLOBIN 0.8 % (0-3); MODE SIMV; O2 CONTENT 11.6 VOL% (18-24); OPERATOR ID 16469; PCO2 (CO2 TENSION) 50 MMHG (35-45); PO2 (O2 TENSION) 99 MMHG (79-93); SAMPLE Arterial; TIDAL VOLUME 800 ML; pH 7.22 (7.37-7.43)
[2016-10-22 04:07] LABS: BASOPHILS 0.1 %; BASOPHILS ABSOLUTE 0.01 10/3/uL (0.0-0.16); EOSINOPHILS 0 %; HEMATOCRIT 24.5 % (40.0-51.0); HEMOGLOBIN 7.6 g/dL (13.6-17.8); IMMATURE GRANULOCYTES 1.3 %; IMMATURE GRANULOCYTES ABSOLUTE 0.24 10/3/uL (0.0-0.11); LYMPHOCYTES ABSOLUTE 0.54 10/3/uL (0.67-4.30); MEAN CORPUSCULAR VOLUME 77.3 fL (80-100); MEAN PLATELET VOLUME 9.2 fL (9.2-13.0); MONOCYTES 3.3 %; NEUTROPHILS 92.3 %; NEUTROPHILS ABSOLUTE 16.61 10/3/uL (2.02-8.40); PLATELET COUNT 141 10/3/uL (150-400); RBC DISTRIBUTION WIDTH 18.7 % (12.0-16.0); RED CELL COUNT 3.17 10/6/uL (4.7-6.1)
[2016-10-22 04:08] LABS: MANUAL DIFF NO %
[2016-10-22 04:13] LABS: INTERNATIONAL NORMAL RATI 1.4 UNITS (-)
[2016-10-22 04:21] LABS: CHLORIDE, SERUM 108 MMOL/L (96-112); CO2 (CARBON DIOXIDE) 21 MMOL/L (24-34); CREATININE 1.55 MG/DL (0.70-1.30); GFR AFRICAN AMERICAN 55 ML/MIN (>=60); GFR NON AFRICAN AMERICAN 47 ML/MIN (>=60); POTASSIUM, SERUM 5.2 MMOL/L (3.5-5.3); SODIUM, SERUM 142 MMOL/L (135-148)
[2016-10-22 04:36] LABS: BUN (BLOOD UREA NITROGEN) 28 MG/DL (6-23); GLUCOSE, SERUM 134 MG/DL (60-99)
[2016-10-22 05:28] LABS: BE (BASE EXCESS) -3.2 MEQ/L (0 +/- 2.5); HEMOBLOGIN CONTENT 7.8 G/DL (14-18); INSTRUMENT SERIAL # 11843; METHEMOGLOBIN 0.9 % (0-3); MODE SIMV; O2 CONTENT 10.8 VOL% (18-24); OPERATOR ID 16469; PCO2 (CO2 TENSION) 40 MMHG (35-45); PO2 (O2 TENSION) 109 MMHG (79-93); SAMPLE Arterial; TIDAL VOLUME 800 ML; pH 7.36 (7.37-7.43)
[2016-10-22 11:51] LABS: BE (BASE EXCESS) -4.2 MEQ/L (0 +/- 2.5); CARBOXYHEMOGLOBIN 0.5 % (0-3); DEVICE NC; HCO3 (ACTUAL BICARBONATE) 19.7 MEQ/L (23-27); HEMOBLOGIN CONTENT 7.6 G/DL (14-18); INSTRUMENT SERIAL # 11843; O2 CONTENT 10.5 VOL% (18-24); OPERATOR ID 13715; PCO2 (CO2 TENSION) 31 MMHG (35-45); PO2 (O2 TENSION) 109 MMHG (79-93); SAMPLE Arterial; pH 7.42 (7.37-7.43)
[2016-10-22 15:43] LABS: HEMATOCRIT 19.6 % (40.0-51.0); HEMOGLOBIN 6.2 g/dL (13.6-17.8)
[2016-10-22 17:37] LABS: HEMATOCRIT 20.3 % (40.0-51.0); HEMOGLOBIN 6.4 g/dL (13.6-17.8)
[2016-10-23 04:22] LABS: BASOPHILS 0.1 %; BASOPHILS ABSOLUTE 0.01 10/3/uL (0.0-0.16); EOSINOPHILS 0 %; IMMATURE GRANULOCYTES 0.9 %; IMMATURE GRANULOCYTES ABSOLUTE 0.17 10/3/uL (0.0-0.11); LYMPHOCYTES 8.9 %; LYMPHOCYTES ABSOLUTE 1.62 10/3/uL (0.67-4.30); MEAN CORPUS HGB CONC 32.3 g/dL (32.0-36.0); MEAN CORPUSCULAR HEMOGLOB 25.2 pg (26.0-34.0); MEAN CORPUSCULAR VOLUME 78.2 fL (80-100); MEAN PLATELET VOLUME 10.3 fL (9.2-13.0); MONOCYTES 5.3 %; MONOCYTES ABSOLUTE 0.96 10/3/uL (0.21-1.20); NEUTROPHILS 84.8 %; NEUTROPHILS ABSOLUTE 15.43 10/3/uL (2.02-8.40); PLATELET COUNT 180 10/3/uL (150-400); RBC DISTRIBUTION WIDTH 19.5 % (12.0-16.0); RED CELL COUNT 3.21 10/6/uL (4.7-6.1); WHITE BLOOD CELLS 18.2 10/3/uL (4.5-10.5)
[2016-10-23 04:26] LABS: HEMATOCRIT 25.1 % (40.0-51.0); HEMOGLOBIN 8.1 g/dL (13.6-17.8); MANUAL DIFF NO %
[2016-10-23 04:32] LABS: ALBUMIN 2.9 G/DL (3.5-5.0); ALKALINE PHOSPHATASE 61 U/L (45-117); BUN (BLOOD UREA NITROGEN) 30 MG/DL (6-23); CALCIUM, SERUM 8.4 MG/DL (8.5-10.4); CHLORIDE, SERUM 111 MMOL/L (96-112); CO2 (CARBON DIOXIDE) 24 MMOL/L (24-34); CREATININE 1.27 MG/DL (0.70-1.30); DIRECT BILIRUBIN 0.2 MG/DL (0.0-0.4); GFR AFRICAN AMERICAN 70 ML/MIN (>=60); GFR NON AFRICAN AMERICAN 60 ML/MIN (>=60); INDIRECT BILIRUBIN(NOT ORDER) 0.3 MG/DL (0.1-0.9); POTASSIUM, SERUM 4.5 MMOL/L (3.5-5.3); SGOT(AST) 167 U/L (5-40); SGPT(ALT) 39 U/L (5-65); SODIUM, SERUM 143 MMOL/L (135-148); TOTAL PROTEIN 5.8 G/DL (6.0-8.5)
[2016-10-23 04:33] LABS: GLUCOSE, SERUM 96 MG/DL (60-99); TOTAL BILIRUBIN 0.5 MG/DL (0-1.2)
[2016-10-24 03:58] LABS: CALCIUM, SERUM 8.6 MG/DL (8.5-10.4); CHLORIDE, SERUM 108 MMOL/L (96-112); CO2 (CARBON DIOXIDE) 22 MMOL/L (24-34); CREATININE 1.32 MG/DL (0.70-1.30); GFR AFRICAN AMERICAN 67 ML/MIN (>=60); GFR NON AFRICAN AMERICAN 57 ML/MIN (>=60); GLUCOSE, SERUM 90 MG/DL (60-99); POTASSIUM, SERUM 4.1 MMOL/L (3.5-5.3); SODIUM, SERUM 141 MMOL/L (135-148)
[2016-10-24 03:59] LABS: BUN (BLOOD UREA NITROGEN) 26 MG/DL (6-23)
[2016-10-24 04:10] LABS: BASOPHILS 0.2 %; BASOPHILS ABSOLUTE 0.03 10/3/uL (0.0-0.16); EOSINOPHILS 0.5 %; EOSINOPHILS ABSOLUTE 0.09 10/3/uL (0.0-0.53); HEMATOCRIT 25.3 % (40.0-51.0); HEMOGLOBIN 8.2 g/dL (13.6-17.8); IMMATURE GRANULOCYTES ABSOLUTE 0.36 10/3/uL (0.0-0.11); LYMPHOCYTES 9.8 %; LYMPHOCYTES ABSOLUTE 1.77 10/3/uL (0.67-4.30); MEAN CORPUS HGB CONC 32.4 g/dL (32.0-36.0); MEAN CORPUSCULAR HEMOGLOB 25.7 pg (26.0-34.0); MEAN CORPUSCULAR VOLUME 79.3 fL (80-100); MEAN PLATELET VOLUME 9.2 fL (9.2-13.0); MONOCYTES 10.1 %; MONOCYTES ABSOLUTE 1.83 10/3/uL (0.21-1.20); NEUTROPHILS 77.4 %; NEUTROPHILS ABSOLUTE 14.02 10/3/uL (2.02-8.40); NUCLEATED RED BLOOD CELLS 1.3 /100WBC (0-0); RBC DISTRIBUTION WIDTH 20.5 % (12.0-16.0); RED CELL COUNT 3.19 10/6/uL (4.7-6.1); WHITE BLOOD CELLS 18.1 10/3/uL (4.5-10.5)
[2016-10-24 04:11] LABS: MANUAL DIFF NO %; PLATELET COUNT 288 10/3/uL (150-400)
[2016-10-24 11:07] LABS: ASCORBIC ACID (UR NOT ORDER) 40 (NEG); BILIRUBIN, URINE NEGATIVE (NEG); KETONE, URINE NEGATIVE (NEG); LEUKOCYTE ESTERASE(NOT OR TRACE (NEG); WBC (NOT ORDERED) (RFLEX) 2 (0-5)
[2016-10-24 13:07] LABS: PROTHROMBIN FRAGMENT 1+2 MONOC 768 pmol/L (87-325)
[2016-10-25 08:01] LABS: BASOPHILS 0.1 %; BASOPHILS ABSOLUTE 0.01 10/3/uL (0.0-0.16); EOSINOPHILS 3.4 %; EOSINOPHILS ABSOLUTE 0.44 10/3/uL (0.0-0.53); HEMATOCRIT 24.9 % (40.0-51.0); IMMATURE GRANULOCYTES 1.8 %; IMMATURE GRANULOCYTES ABSOLUTE 0.23 10/3/uL (0.0-0.11); LYMPHOCYTES 7.4 %; LYMPHOCYTES ABSOLUTE 0.94 10/3/uL (0.67-4.30); MEAN CORPUS HGB CONC 32.1 g/dL (32.0-36.0); MEAN CORPUSCULAR HEMOGLOB 26.5 pg (26.0-34.0); MEAN PLATELET VOLUME 8.8 fL (9.2-13.0); MONOCYTES 7.9 %; MONOCYTES ABSOLUTE 1.01 10/3/uL (0.21-1.20); NEUTROPHILS 79.4 %; NEUTROPHILS ABSOLUTE 10.14 10/3/uL (2.02-8.40); NUCLEATED RED BLOOD CELLS 1.1 /100WBC (0-0); PLATELET COUNT 272 10/3/uL (150-400); RBC DISTRIBUTION WIDTH 21.3 % (12.0-16.0); RED CELL COUNT 3.02 10/6/uL (4.7-6.1); WHITE BLOOD CELLS 12.8 10/3/uL (4.5-10.5)
[2016-10-25 08:06] LABS: BUN (BLOOD UREA NITROGEN) 17 MG/DL (6-23); CALCIUM, SERUM 8.5 MG/DL (8.5-10.4); CHLORIDE, SERUM 104 MMOL/L (96-112); CO2 (CARBON DIOXIDE) 27 MMOL/L (24-34); CREATININE 0.93 MG/DL (0.70-1.30); GFR AFRICAN AMERICAN 102 ML/MIN (>=60); GFR NON AFRICAN AMERICAN 88 ML/MIN (>=60); GLUCOSE, SERUM 66 MG/DL (60-99); POTASSIUM, SERUM 4.1 MMOL/L (3.5-5.3); SODIUM, SERUM 141 MMOL/L (135-148)
[2016-10-25 08:14] LABS: MANUAL DIFF NO %; MEAN CORPUSCULAR VOLUME 82.5 fL (80-100)
[2016-10-26 08:21] LABS: HEMATOCRIT 23.5 % (40.0-51.0); HEMOGLOBIN 7.6 g/dL (13.6-17.8); MEAN CORPUS HGB CONC 32.3 g/dL (32.0-36.0); MEAN CORPUSCULAR HEMOGLOB 26.7 pg (26.0-34.0); MEAN CORPUSCULAR VOLUME 82.5 fL (80-100); MEAN PLATELET VOLUME 8.6 fL (9.2-13.0); NUCLEATED RED BLOOD CELLS 0.9 /100WBC (0-0); PLATELET COUNT 300 10/3/uL (150-400); RBC DISTRIBUTION WIDTH 22.2 % (12.0-16.0); RED CELL COUNT 2.85 10/6/uL (4.7-6.1); WHITE BLOOD CELLS 11.5 10/3/uL (4.5-10.5)
[2016-10-26 08:22] LABS: MANUAL DIFF YES %
[2016-10-26 08:27] LABS: BUN (BLOOD UREA NITROGEN) 14 MG/DL (6-23); CALCIUM, SERUM 8.3 MG/DL (8.5-10.4); CHLORIDE, SERUM 101 MMOL/L (96-112); CO2 (CARBON DIOXIDE) 25 MMOL/L (24-34); CREATININE 0.84 MG/DL (0.70-1.30); GFR AFRICAN AMERICAN 109 ML/MIN (>=60); GFR NON AFRICAN AMERICAN 94 ML/MIN (>=60); POTASSIUM, SERUM 4.2 MMOL/L (3.5-5.3); SODIUM, SERUM 136 MMOL/L (135-148)
[2016-10-26 08:28] LABS: GLUCOSE, SERUM 107 MG/DL (60-99)
[2016-10-26 10:43] LABS: BAND NEUTROPHILS 4 %; EOSINOPHILS 3 %; EOSINOPHILS ABSOLUTE (CALC) 0.35 10/3/uL (0.0-0.53); IMMATURE GRANS ABSOLUTE (CALC) 0.23 10/3/uL (0.0-0.11); LYMPHOCYTES 6 %; LYMPHOCYTES ABSOLUTE (CALC) 0.69 10/3/uL (0.67-4.30); METAMYELOCYTES 1 %; MONOCYTES 8 %; MONOCYTES ABSOLUTE (CALC) 0.92 10/3/uL (0.21-1.20); MYELOCYTES 1 %; NEUTROPHILS ABSOLUTE (CALC) 9.32 10/3/uL (2.02-8.40); SEGMENTED NEUTROPHIL (0) 77 %; TOTAL NUCLEATED CELLS 100
[2016-10-26 10:44] LABS: MACROCYTES 1+ (5-10/OIF) (0-5/OIF); MICROCYTES 1+ (5-10/OIF) (0-5/OIF); PLATELET ESTIMATE ADQ (ADEQUATE); POLYCHROMASIA 1+ (2-5/OIF) (0-1/OIF)
[2016-10-27 05:17] LABS: BASOPHILS 0.2 %; BASOPHILS ABSOLUTE 0.03 10/3/uL (0.0-0.16); BUN (BLOOD UREA NITROGEN) 10 MG/DL (6-23); CALCIUM, SERUM 8.6 MG/DL (8.5-10.4); CHLORIDE, SERUM 92 MMOL/L (96-112); CO2 (CARBON DIOXIDE) 30 MMOL/L (24-34); CREATININE 0.94 MG/DL (0.70-1.30); EOSINOPHILS ABSOLUTE 0.25 10/3/uL (0.0-0.53); GFR AFRICAN AMERICAN 100 ML/MIN (>=60); GFR NON AFRICAN AMERICAN 87 ML/MIN (>=60); GLUCOSE, SERUM 130 MG/DL (60-99); IMMATURE GRANULOCYTES ABSOLUTE 0.49 10/3/uL (0.0-0.11); LYMPHOCYTES 8.4 %; LYMPHOCYTES ABSOLUTE 1.04 10/3/uL (0.67-4.30); MEAN CORPUS HGB CONC 33.1 g/dL (32.0-36.0); MEAN CORPUSCULAR HEMOGLOB 27.3 pg (26.0-34.0); MEAN CORPUSCULAR VOLUME 82.5 fL (80-100); MEAN PLATELET VOLUME 8.9 fL (9.2-13.0); MONOCYTES 8.2 %; MONOCYTES ABSOLUTE 1.02 10/3/uL (0.21-1.20); NEUTROPHILS 77.2 %; NEUTROPHILS ABSOLUTE 9.55 10/3/uL (2.02-8.40); NUCLEATED RED BLOOD CELLS 0.4 /100WBC (0-0); PLATELET COUNT 354 10/3/uL (150-400); POTASSIUM, SERUM 3.8 MMOL/L (3.5-5.3); RBC DISTRIBUTION WIDTH 21.8 % (12.0-16.0); SODIUM, SERUM 134 MMOL/L (135-148); WHITE BLOOD CELLS 12.4 10/3/uL (4.5-10.5)
[2016-10-27 05:22] LABS: HEMATOCRIT 28.7 % (40.0-51.0); HEMOGLOBIN 9.5 g/dL (13.6-17.8); MANUAL DIFF NO %; RED CELL COUNT 3.48 10/6/uL (4.7-6.1)
[2016-10-28 05:38] LABS: BASOPHILS 0.1 %; BASOPHILS ABSOLUTE 0.01 10/3/uL (0.0-0.16); EOSINOPHILS 2.1 %; EOSINOPHILS ABSOLUTE 0.23 10/3/uL (0.0-0.53); HEMATOCRIT 29.8 % (40.0-51.0); HEMOGLOBIN 9.5 g/dL (13.6-17.8); IMMATURE GRANULOCYTES 2.2 %; IMMATURE GRANULOCYTES ABSOLUTE 0.24 10/3/uL (0.0-0.11); LYMPHOCYTES 11.9 %; LYMPHOCYTES ABSOLUTE 1.32 10/3/uL (0.67-4.30); MEAN CORPUS HGB CONC 31.9 g/dL (32.0-36.0); MEAN CORPUSCULAR HEMOGLOB 26.8 pg (26.0-34.0); MEAN CORPUSCULAR VOLUME 83.9 fL (80-100); MEAN PLATELET VOLUME 8.2 fL (9.2-13.0); MONOCYTES ABSOLUTE 0.89 10/3/uL (0.21-1.20); NEUTROPHILS 75.7 %; NEUTROPHILS ABSOLUTE 8.43 10/3/uL (2.02-8.40); PLATELET COUNT 332 10/3/uL (150-400); RBC DISTRIBUTION WIDTH 21.9 % (12.0-16.0); RED CELL COUNT 3.55 10/6/uL (4.7-6.1); WHITE BLOOD CELLS 11.1 10/3/uL (4.5-10.5)
[2016-10-28 05:44] LABS: MANUAL DIFF NO %
[2016-10-28 06:01] LABS: BUN (BLOOD UREA NITROGEN) 8 MG/DL (6-23); CALCIUM, SERUM 8.9 MG/DL (8.5-10.4); CHLORIDE, SERUM 98 MMOL/L (96-112); CO2 (CARBON DIOXIDE) 30 MMOL/L (24-34); CREATININE 0.83 MG/DL (0.70-1.30); GFR AFRICAN AMERICAN 109 ML/MIN (>=60); GFR NON AFRICAN AMERICAN 94 ML/MIN (>=60); POTASSIUM, SERUM 3.7 MMOL/L (3.5-5.3); SODIUM, SERUM 138 MMOL/L (135-148)
[2016-10-28 06:03] LABS: GLUCOSE, SERUM 71 MG/DL (60-99)
[2016-10-29 07:28] LABS: INTERNATIONAL NORMAL RATI 1.1 UNITS (-); PROTIME (NOT ORD) 14.5 SEC (12.0-14.5)
[2016-10-29 07:33] LABS: PARTIAL THROMBO TIME 33.1 SEC (22.5-37.2)
[2016-10-30 04:42] LABS: INTERNATIONAL NORMAL RATI 1.2 UNITS (-); PROTIME (NOT ORD) 14.9 SEC (12.0-14.5)
[2016-10-31 06:15] LABS: HEMATOCRIT 29.2 % (40.0-51.0); HEMOGLOBIN 9.4 g/dL (13.6-17.8)
[2016-10-31 06:26] LABS: INTERNATIONAL NORMAL RATI 1.2 UNITS (-); PROTIME (NOT ORD) 15.1 SEC (12.0-14.5)
[2016-10-31 09:57] LABS: BASOPHILS 0.1 %; BASOPHILS ABSOLUTE 0.01 10/3/uL (0.0-0.16); EOSINOPHILS 1.8 %; EOSINOPHILS ABSOLUTE 0.22 10/3/uL (0.0-0.53); IMMATURE GRANULOCYTES 1.3 %; IMMATURE GRANULOCYTES ABSOLUTE 0.15 10/3/uL (0.0-0.11); LYMPHOCYTES 11.9 %; LYMPHOCYTES ABSOLUTE 1.43 10/3/uL (0.67-4.30); MEAN CORPUS HGB CONC 30.5 g/dL (32.0-36.0); MEAN CORPUSCULAR VOLUME 85.4 fL (80-100); MEAN PLATELET VOLUME 8.7 fL (9.2-13.0); MONOCYTES 7.2 %; MONOCYTES ABSOLUTE 0.86 10/3/uL (0.21-1.20); NEUTROPHILS 77.7 %; NEUTROPHILS ABSOLUTE 9.31 10/3/uL (2.02-8.40); PLATELET COUNT 371 10/3/uL (150-400); RBC DISTRIBUTION WIDTH 22.1 % (12.0-16.0); RED CELL COUNT 3.42 10/6/uL (4.7-6.1)
[2016-10-31 10:06] LABS: MANUAL DIFF NO %
[2016-10-31 10:22] LABS: HYPOCHROMIA 1+ (3-10/OIF) (0-2/OIF); POLYCHROMASIA 1+ (2-5/OIF) (0-1/OIF)
[2016-11-04 03:34] LABS: BASOPHILS 0.3 %; BASOPHILS ABSOLUTE 0.03 10/3/uL (0.0-0.16); EOSINOPHILS 4.3 %; EOSINOPHILS ABSOLUTE 0.47 10/3/uL (0.0-0.53); HEMATOCRIT 28.6 % (40.0-51.0); HEMOGLOBIN 8.9 g/dL (13.6-17.8); IMMATURE GRANULOCYTES 0.9 %; LYMPHOCYTES 12.6 %; LYMPHOCYTES ABSOLUTE 1.37 10/3/uL (0.67-4.30); MANUAL DIFF NO %; MEAN CORPUS HGB CONC 31.1 g/dL (32.0-36.0); MEAN CORPUSCULAR HEMOGLOB 26.5 pg (26.0-34.0); MEAN CORPUSCULAR VOLUME 85.1 fL (80-100); MEAN PLATELET VOLUME 8.3 fL (9.2-13.0); MONOCYTES 10.6 %; MONOCYTES ABSOLUTE 1.15 10/3/uL (0.21-1.20); NEUTROPHILS 71.3 %; NEUTROPHILS ABSOLUTE 7.74 10/3/uL (2.02-8.40); PLATELET COUNT 317 10/3/uL (150-400); RBC DISTRIBUTION WIDTH 21.9 % (12.0-16.0); RED CELL COUNT 3.36 10/6/uL (4.7-6.1); WHITE BLOOD CELLS 10.9 10/3/uL (4.5-10.5)
[2016-11-04 03:54] LABS: A/G RATIO 0.6 (0.7-1.9); ALBUMIN 2.4 G/DL (3.5-5.0); ALKALINE PHOSPHATASE 79 U/L (45-117); BUN (BLOOD UREA NITROGEN) 16 MG/DL (6-23); CALCIUM, SERUM 8.3 MG/DL (8.5-10.4); CHLORIDE, SERUM 101 MMOL/L (96-112); CO2 (CARBON DIOXIDE) 30 MMOL/L (24-34); CREATININE 1.17 MG/DL (0.70-1.30); GFR AFRICAN AMERICAN 77 ML/MIN (>=60); GFR NON AFRICAN AMERICAN 66 ML/MIN (>=60); GLOBULIN 4.1 G/DL (2.5-4.1); GLUCOSE, SERUM 155 MG/DL (60-99); POTASSIUM, SERUM 4.3 MMOL/L (3.5-5.3); SGOT(AST) 35 U/L (5-40); SGPT(ALT) 18 U/L (5-65); SODIUM, SERUM 138 MMOL/L (135-148); TOTAL BILIRUBIN 0.7 MG/DL (0-1.2); TOTAL PROTEIN 6.5 G/DL (6.0-8.5)
[2016-11-04 16:58] LABS: INTERNATIONAL NORMAL RATI 1.2 UNITS (-); PROTIME (NOT ORD) 14.6 SEC (12.0-14.5)
[2016-11-05 04:28] LABS: INTERNATIONAL NORMAL RATI 1.1 UNITS (-); PROTIME (NOT ORD) 14.3 SEC (12.0-14.5)
[2016-11-05 04:31] LABS: BASOPHILS 0.2 %; BASOPHILS ABSOLUTE 0.02 10/3/uL (0.0-0.16); EOSINOPHILS 4.6 %; EOSINOPHILS ABSOLUTE 0.45 10/3/uL (0.0-0.53); HEMATOCRIT 31.1 % (40.0-51.0); HEMOGLOBIN 9.5 g/dL (13.6-17.8); IMMATURE GRANULOCYTES 0.8 %; IMMATURE GRANULOCYTES ABSOLUTE 0.08 10/3/uL (0.0-0.11); LYMPHOCYTES 20.3 %; LYMPHOCYTES ABSOLUTE 1.98 10/3/uL (0.67-4.30); MANUAL DIFF NO %; MEAN CORPUS HGB CONC 30.5 g/dL (32.0-36.0); MEAN CORPUSCULAR HEMOGLOB 26.7 pg (26.0-34.0); MEAN CORPUSCULAR VOLUME 87.4 fL (80-100); MEAN PLATELET VOLUME 8.5 fL (9.2-13.0); MONOCYTES 9.3 %; MONOCYTES ABSOLUTE 0.91 10/3/uL (0.21-1.20); NEUTROPHILS 64.8 %; NEUTROPHILS ABSOLUTE 6.33 10/3/uL (2.02-8.40); PLATELET COUNT 354 10/3/uL (150-400); RBC DISTRIBUTION WIDTH 21.9 % (12.0-16.0); RED CELL COUNT 3.56 10/6/uL (4.7-6.1); WHITE BLOOD CELLS 9.8 10/3/uL (4.5-10.5)
[2016-11-05 04:38] LABS: BUN (BLOOD UREA NITROGEN) 16 MG/DL (6-23); CALCIUM, SERUM 8.8 MG/DL (8.5-10.4); CHLORIDE, SERUM 102 MMOL/L (96-112); CO2 (CARBON DIOXIDE) 27 MMOL/L (24-34); CREATININE 1.13 MG/DL (0.70-1.30); GFR AFRICAN AMERICAN 80 ML/MIN (>=60); GFR NON AFRICAN AMERICAN 69 ML/MIN (>=60); POTASSIUM, SERUM 4.6 MMOL/L (3.5-5.3); SODIUM, SERUM 139 MMOL/L (135-148)
[2016-11-05 04:49] LABS: GLUCOSE, SERUM 112 MG/DL (60-99)
[2016-11-06 06:50] LABS: BASOPHILS 0.7 %; BASOPHILS ABSOLUTE 0.06 10/3/uL (0.0-0.16); EOSINOPHILS 7.7 %; EOSINOPHILS ABSOLUTE 0.66 10/3/uL (0.0-0.53); HEMATOCRIT 30.3 % (40.0-51.0); HEMOGLOBIN 9.5 g/dL (13.6-17.8); IMMATURE GRANULOCYTES 0.7 %; IMMATURE GRANULOCYTES ABSOLUTE 0.06 10/3/uL (0.0-0.11); LYMPHOCYTES 21.1 %; LYMPHOCYTES ABSOLUTE 1.81 10/3/uL (0.67-4.30); MEAN CORPUS HGB CONC 31.4 g/dL (32.0-36.0); MEAN CORPUSCULAR HEMOGLOB 26.9 pg (26.0-34.0); MEAN CORPUSCULAR VOLUME 85.8 fL (80-100); MEAN PLATELET VOLUME 8.4 fL (9.2-13.0); MONOCYTES 10.9 %; MONOCYTES ABSOLUTE 0.93 10/3/uL (0.21-1.20); NEUTROPHILS 58.9 %; NEUTROPHILS ABSOLUTE 5.04 10/3/uL (2.02-8.40); PLATELET COUNT 349 10/3/uL (150-400); RED CELL COUNT 3.53 10/6/uL (4.7-6.1); WHITE BLOOD CELLS 8.6 10/3/uL (4.5-10.5)
[2016-11-06 06:54] LABS: MANUAL DIFF NO %
[2016-11-06 06:57] LABS: INTERNATIONAL NORMAL RATI 1.2 UNITS (-)
[2016-11-06 07:03] LABS: BUN (BLOOD UREA NITROGEN) 16 MG/DL (6-23); CALCIUM, SERUM 8.7 MG/DL (8.5-10.4); CHLORIDE, SERUM 98 MMOL/L (96-112); CO2 (CARBON DIOXIDE) 28 MMOL/L (24-34); GFR AFRICAN AMERICAN 83 ML/MIN (>=60); GFR NON AFRICAN AMERICAN 72 ML/MIN (>=60); GLUCOSE, SERUM 95 MG/DL (60-99); POTASSIUM, SERUM 4.6 MMOL/L (3.5-5.3); SODIUM, SERUM 135 MMOL/L (135-148)
[2016-11-07 04:24] LABS: INTERNATIONAL NORMAL RATI 1.2 UNITS (-); PROTIME (NOT ORD) 15.3 SEC (12.0-14.5)
[2016-11-07 04:26] LABS: BASOPHILS 0.7 %; BASOPHILS ABSOLUTE 0.06 10/3/uL (0.0-0.16); EOSINOPHILS 6.6 %; EOSINOPHILS ABSOLUTE 0.55 10/3/uL (0.0-0.53); HEMATOCRIT 30.4 % (40.0-51.0); HEMOGLOBIN 9.5 g/dL (13.6-17.8); IMMATURE GRANULOCYTES 0.6 %; IMMATURE GRANULOCYTES ABSOLUTE 0.05 10/3/uL (0.0-0.11); LYMPHOCYTES 22.5 %; LYMPHOCYTES ABSOLUTE 1.88 10/3/uL (0.67-4.30); MEAN CORPUS HGB CONC 31.3 g/dL (32.0-36.0); MEAN CORPUSCULAR HEMOGLOB 26.5 pg (26.0-34.0); MEAN CORPUSCULAR VOLUME 84.9 fL (80-100); MEAN PLATELET VOLUME 8.5 fL (9.2-13.0); MONOCYTES 11.1 %; MONOCYTES ABSOLUTE 0.93 10/3/uL (0.21-1.20); NEUTROPHILS 58.5 %; PLATELET COUNT 342 10/3/uL (150-400); RBC DISTRIBUTION WIDTH 21.3 % (12.0-16.0); RED CELL COUNT 3.58 10/6/uL (4.7-6.1); WHITE BLOOD CELLS 8.4 10/3/uL (4.5-10.5)
[2016-11-07 04:31] LABS: CALCIUM, SERUM 8.7 MG/DL (8.5-10.4); CHLORIDE, SERUM 99 MMOL/L (96-112); CO2 (CARBON DIOXIDE) 30 MMOL/L (24-34); CREATININE 1.16 MG/DL (0.70-1.30); GFR AFRICAN AMERICAN 78 ML/MIN (>=60); GFR NON AFRICAN AMERICAN 67 ML/MIN (>=60); GLUCOSE, SERUM 83 MG/DL (60-99); SODIUM, SERUM 137 MMOL/L (135-148)
[2016-11-07 04:32] LABS: BUN (BLOOD UREA NITROGEN) 20 MG/DL (6-23); POTASSIUM, SERUM 4.5 MMOL/L (3.5-5.3)
[2016-11-07 04:44] LABS: MANUAL DIFF NO %
[2016-11-08 06:18] LABS: INTERNATIONAL NORMAL RATI 1.5 UNITS (-)
[2016-11-08 06:20] LABS: PROTIME (NOT ORD) 17.6 SEC (12.0-14.5)
[2016-11-08 06:36] LABS: BUN (BLOOD UREA NITROGEN) 20 MG/DL (6-23); CALCIUM, SERUM 8.8 MG/DL (8.5-10.4); CHLORIDE, SERUM 99 MMOL/L (96-112); CO2 (CARBON DIOXIDE) 27 MMOL/L (24-34); CREATININE 1.01 MG/DL (0.70-1.30); GFR AFRICAN AMERICAN 92 ML/MIN (>=60); GFR NON AFRICAN AMERICAN 79 ML/MIN (>=60); GLUCOSE, SERUM 93 MG/DL (60-99); SODIUM, SERUM 134 MMOL/L (135-148)
[2016-11-08 06:37] LABS: POTASSIUM, SERUM 4.6 MMOL/L (3.5-5.3)
[2016-11-08 08:26] LABS: BASOPHILS 0.3 %; BASOPHILS ABSOLUTE 0.02 10/3/uL (0.0-0.16); EOSINOPHILS 7.3 %; EOSINOPHILS ABSOLUTE 0.51 10/3/uL (0.0-0.53); HEMATOCRIT 29.5 % (40.0-51.0); HEMOGLOBIN 9.5 g/dL (13.6-17.8); IMMATURE GRANULOCYTES 0.4 %; IMMATURE GRANULOCYTES ABSOLUTE 0.03 10/3/uL (0.0-0.11); LYMPHOCYTES 23.8 %; LYMPHOCYTES ABSOLUTE 1.67 10/3/uL (0.67-4.30); MEAN CORPUS HGB CONC 32.2 g/dL (32.0-36.0); MEAN CORPUSCULAR HEMOGLOB 26.9 pg (26.0-34.0); MEAN CORPUSCULAR VOLUME 83.6 fL (80-100); MEAN PLATELET VOLUME 8.1 fL (9.2-13.0); MONOCYTES 10.7 %; MONOCYTES ABSOLUTE 0.75 10/3/uL (0.21-1.20); NEUTROPHILS 57.5 %; NEUTROPHILS ABSOLUTE 4.04 10/3/uL (2.02-8.40); PLATELET COUNT 294 10/3/uL (150-400); RBC DISTRIBUTION WIDTH 21.4 % (12.0-16.0); RED CELL COUNT 3.53 10/6/uL (4.7-6.1)
[2016-11-08 08:30] LABS: MANUAL DIFF NO %
[2016-11-09 06:03] LABS: BASOPHILS 0.5 %; BASOPHILS ABSOLUTE 0.04 10/3/uL (0.0-0.16); EOSINOPHILS 5.4 %; EOSINOPHILS ABSOLUTE 0.42 10/3/uL (0.0-0.53); HEMATOCRIT 30.1 % (40.0-51.0); HEMOGLOBIN 9.5 g/dL (13.6-17.8); IMMATURE GRANULOCYTES 0.8 %; IMMATURE GRANULOCYTES ABSOLUTE 0.06 10/3/uL (0.0-0.11); LYMPHOCYTES 19.4 %; LYMPHOCYTES ABSOLUTE 1.51 10/3/uL (0.67-4.30); MEAN CORPUS HGB CONC 31.6 g/dL (32.0-36.0); MEAN CORPUSCULAR HEMOGLOB 26.5 pg (26.0-34.0); MEAN CORPUSCULAR VOLUME 83.8 fL (80-100); MEAN PLATELET VOLUME 8.3 fL (9.2-13.0); MONOCYTES 8.8 %; MONOCYTES ABSOLUTE 0.68 10/3/uL (0.21-1.20); NEUTROPHILS 65.1 %; NEUTROPHILS ABSOLUTE 5.06 10/3/uL (2.02-8.40); PLATELET COUNT 305 10/3/uL (150-400); RBC DISTRIBUTION WIDTH 21.2 % (12.0-16.0); RED CELL COUNT 3.59 10/6/uL (4.7-6.1); WHITE BLOOD CELLS 7.8 10/3/uL (4.5-10.5)
[2016-11-09 06:04] LABS: MANUAL DIFF NO %
[2016-11-09 06:09] LABS: INTERNATIONAL NORMAL RATI 1.6 UNITS (-); PROTIME (NOT ORD) 18.8 SEC (12.0-14.5)
[2016-11-09 06:14] LABS: BUN (BLOOD UREA NITROGEN) 17 MG/DL (6-23); CALCIUM, SERUM 8.7 MG/DL (8.5-10.4); CHLORIDE, SERUM 100 MMOL/L (96-112); CO2 (CARBON DIOXIDE) 27 MMOL/L (24-34); CREATININE 1.08 MG/DL (0.70-1.30); GFR AFRICAN AMERICAN 85 ML/MIN (>=60); GFR NON AFRICAN AMERICAN 73 ML/MIN (>=60); GLUCOSE, SERUM 76 MG/DL (60-99); POTASSIUM, SERUM 4.7 MMOL/L (3.5-5.3); SODIUM, SERUM 136 MMOL/L (135-148)
[2016-11-10 06:21] LABS: BASOPHILS 0.3 %; BASOPHILS ABSOLUTE 0.02 10/3/uL (0.0-0.16); EOSINOPHILS 7.9 %; EOSINOPHILS ABSOLUTE 0.52 10/3/uL (0.0-0.53); HEMOGLOBIN 9.7 g/dL (13.6-17.8); IMMATURE GRANULOCYTES 0.3 %; IMMATURE GRANULOCYTES ABSOLUTE 0.02 10/3/uL (0.0-0.11); LYMPHOCYTES 22.5 %; LYMPHOCYTES ABSOLUTE 1.48 10/3/uL (0.67-4.30); MEAN CORPUS HGB CONC 31.3 g/dL (32.0-36.0); MEAN CORPUSCULAR HEMOGLOB 26.4 pg (26.0-34.0); MEAN CORPUSCULAR VOLUME 84.5 fL (80-100); MEAN PLATELET VOLUME 8.5 fL (9.2-13.0); MONOCYTES 11.3 %; MONOCYTES ABSOLUTE 0.74 10/3/uL (0.21-1.20); NEUTROPHILS 57.7 %; NEUTROPHILS ABSOLUTE 3.79 10/3/uL (2.02-8.40); PLATELET COUNT 355 10/3/uL (150-400); RBC DISTRIBUTION WIDTH 20.4 % (12.0-16.0); RED CELL COUNT 3.67 10/6/uL (4.7-6.1); WHITE BLOOD CELLS 6.6 10/3/uL (4.5-10.5)
[2016-11-10 06:22] LABS: MANUAL DIFF NO %
[2016-11-10 06:24] LABS: INTERNATIONAL NORMAL RATI 1.8 UNITS (-); PROTIME (NOT ORD) 20.6 SEC (12.0-14.5)
[2016-11-10 06:42] LABS: BUN (BLOOD UREA NITROGEN) 15 MG/DL (6-23); CALCIUM, SERUM 8.6 MG/DL (8.5-10.4); CHLORIDE, SERUM 98 MMOL/L (96-112); CO2 (CARBON DIOXIDE) 29 MMOL/L (24-34); CREATININE 0.95 MG/DL (0.70-1.30); GFR AFRICAN AMERICAN 99 ML/MIN (>=60); GFR NON AFRICAN AMERICAN 85 ML/MIN (>=60); GLUCOSE, SERUM 82 MG/DL (60-99); POTASSIUM, SERUM 4.4 MMOL/L (3.5-5.3); SODIUM, SERUM 135 MMOL/L (135-148)
== END 2016-11-10 17:16 | DRG 216 ==
LOC: ER 14:18 → 1SO 18:12 → CCU 10-15 11:33 → IMCU 10-16 14:55 → SDC/OF 10-21 09:52 → CVICU 10-21 15:17 → 5NO 10-24 14:32
PROVIDERS: Hospitalist; Internal Medicine; Internal Medicine Critical Care Medicine; Internal Medicine Infectious Disease; Nurse Practitioner; Nurse Practitioner Family; Physician Assistant; Psychiatry & Neurology Neurology; Student in an Organized Health Care Education/Training Program; Thoracic Surgery (Cardiothoracic Vascular Surgery)
PROC: B246ZZ4 Ultrasonography of Right and Left Heart, Transesophageal (ICD-10-PCS; principal; 2016-10-13)
PROC: 02W Heart and Great Vessels, Revision (ICD-10-PCS; 2016-10-20)
PROC: B2111ZZ Fluoroscopy of Multiple Coronary Arteries using Low Osmolar Contrast (ICD-10-PCS; 2016-10-20)
PROC: B2151ZZ Fluoroscopy of Left Heart using Low Osmolar Contrast (ICD-10-PCS; 2016-10-20)
PROC: 02580ZZ Destruction of Conduction Mechanism, Open Approach (ICD-10-PCS; 2016-10-21)
PROC: 06BP4ZZ Excision of Right Saphenous Vein, Percutaneous Endoscopic Approach (ICD-10-PCS; 2016-10-21)
PROC: 5A1221Z Performance of Cardiac Output, Continuous (ICD-10-PCS; 2016-10-21)
PROC: B246ZZ4 Ultrasonography of Right and Left Heart, Transesophageal (ICD-10-PCS; 2016-10-21)
PROC: B246ZZ4 Ultrasonography of Right and Left Heart, Transesophageal (ICD-10-PCS; 2016-10-21)
PROC: 02B70ZK Excision of Left Atrial Appendage, Open Approach (ICD-10-PCS; 2016-10-21)
PROC: 02RF08Z Replacement of Aortic Valve with Zooplastic Tissue, Open Approach (ICD-10-PCS; 2016-10-21 10:30)
PROC: 06H03DZ Insertion of Intraluminal Device into Inferior Vena Cava, Percutaneous Approach (ICD-10-PCS; 2016-10-30)
PROC: 4A023N7 Measurement of Cardiac Sampling and Pressure, Left Heart, Percutaneous Approach (ICD-10-PCS; 2016-10-30)
DX: T82.6XXA Infection and inflammatory reaction due to cardiac valve prosthesis, initial encounter (principal); I63.10 Cerebral infarction due to embolism of unspecified precerebral artery; I26.99 Other pulmonary embolism without acute cor pulmonale; G93.40 Encephalopathy, unspecified; I33.0 Acute and subacute infective endocarditis; N17.9 Acute kidney failure, unspecified; D62 Acute posthemorrhagic anemia; I82.4Z2 Acute embolism and thrombosis of unspecified deep veins of left distal lower extremity; I50.22 Chronic systolic (congestive) heart failure; I48.0 Paroxysmal atrial fibrillation; I10 Essential (primary) hypertension; J44.9 Chronic obstructive pulmonary disease, unspecified; E11.9 Type 2 diabetes mellitus without complications; E78.5 Hyperlipidemia, unspecified; R47.81 Slurred speech; G47.33 Obstructive sleep apnea (adult) (pediatric); I35.0 Nonrheumatic aortic (valve) stenosis; B19.20 Unspecified viral hepatitis C without hepatic coma; F12.90 Cannabis use, unspecified, uncomplicated; I44.0 Atrioventricular block, first degree; Z91.19 Patient's noncompliance with other medical treatment and regimen; Z79.82 Long term (current) use of aspirin; Z87.891 Personal history of nicotine dependence; Z79.4 Long term (current) use of insulin; Z79.899 Other long term (current) drug therapy; Z79.01 Long term (current) use of anticoagulants; Z83.3 Family history of diabetes mellitus; Z82.3 Family history of stroke; Z82.49 Family history of ischemic heart disease and other diseases of the circulatory system; Z88.5 Allergy status to narcotic agent; Z88.6 Allergy status to analgesic agent; Z91.013 Allergy to seafood; Z79.84 Long term (current) use of oral hypoglycemic drugs; H54.3 Unqualified visual loss, both eyes
CPT/HCPCS: 31720; 36415; 36569; 36600; 37191; 70450; 70496; 70498; 70551; 70553; 71010; 71020; 71275; 74176; 74177; 78264; 80048; 80053; 80061; 80069; 80076; 80305; 80307; 81001; 81241; 82009; 82306; 82330; 82550; 82553; 82607; 82746; 82803; 82805; 82947; 82962; 83036; 83520; 83540; 83550; 83605; 83615; 83735; 84100; 84132; 84145; 84295; 84439; 84443; 84484; 85014; 85018; 85025; 85300; 85303; 85306; 85347; 85384; 85390; 85576; 85610; 85652; 85730; 86039; 86147; 86592; 86850; 86900; 86901; 86920; 87015; 87040; 87070; 87075; 87086; 87102; 87116; 87205; 87389; 87493; 87493-59; 87641; 88300; 88305; 88311; 92523-GN; 93005; 93312; 93320; 93325; 93455; 93880; 93970; 94002; 94003; 94640; 94660; 94770; 97110-GO; 97110-GP; 97116-GP; 97162-GP; 97164-GP; 97166-GO; 97168-GO; 97530-GO; 97530-GP; 97535-GO; 99152; 99285; A9270-GY; A9541; C1713; C1751; C1768; C1769; C1880; C1894; C8929; C9113; J0282; J0690; J1170; J1200; J1644; J1940; J2150; J2250; J2370; J2405; J2440; J2597; J2720; J2795; J2930; J3010; J3370; J3411; J3480; J3486; P9016; P9045; P9047; Q9967

== ENCOUNTER 2017-01-07 13:48 | Observation (INO) | payer OTHER ==
--- NOTE | ~2017-01-07 | EEG ---
Electroencephalogram [address] [place]. [address] NAME: ELADIO PETER : 53 STATUS : ADM Leeanna PAT#: [id number] AGE: 61 ADM/REG DATE : 01/07/17 MR#: [id number] REPORT SERV DATE: 01/09/17 DICTATED BY: YOKO AHN DATE: 01/09/17 REPORT STATUS : Draft TRANSCRIBED BY: MODL DATE: 01/09/17 ELECTROENCEPHALOGRAPHY REPORT ORDERING PHYSICIAN: Ceci Franklin DNP, BANNERP-. DESIGNATED REVIEWER: Yoko Ahn MD-Neurology. REASON FOR EEG: Possible TIA versus seizures. 23 surface electrodes, 10-20 international placement was used. The patient was noted to be awake and drowsy throughout the study. Photic stimulation was performed. Video monitoring was utilized. The background activity consisted of moderate to higher voltage relatively well-organized 8 to 9 cycles per second, located in the posterior head regions. This activity attenuated well with the eye opening maneuvers. Slower frequencies in the theta range were noted during drowsiness. Photic stimulation did not produce any driving response. No additional abnormalities were noted. No paroxysmal epileptiform activity was seen during this study. The patient's gas operator showed borderline sinus bradycardia. Heart rate of approximately 59 to 60 beats per minute. IMPRESSION: THIS EEG MAY BE CONSIDERED WITHIN NORMAL RANGE FOR DROWSY STATE. NO PAROXYSMAL OR EPILEPTIFORM ACTIVITY WAS SEEN DURING THIS STUDY. NO SIGNIFICANT ASYMMETRY OF CEREBRAL ACTIVITY WAS NOTED. CLINICAL CORRELATION IS RECOMMENDED. LEANDROA/NICOLE Yoko Ahn MD / [id number] CC: Bereket Kessler MD
--- NOTE | ~2017-01-07 | CN ---
Consultation Report [facility] [address] [place]. [address] NAME: ELADIO PETER : 53 STATUS : ADM Leeanna PAT#: [id number] AGE: 61 ADM/REG DATE : 01/07/17 MR#: [id number] REPORT SERV DATE: 01/08/17 DICTATED BY: SARA MEJIA DATE: 01/08/17 REPORT STATUS : Draft TRANSCRIBED BY: MODL DATE: 01/08/17 NEUROLOGY CONSULTATION DATE OF CONSULTATION: 01/08/2017 REASON FOR CONSULTATION: Possible stroke. Headache. PCP: Dr. Wilcox from the [place]. HOSPITALIST: Dr. Julio Yee. WOOD BARKER: Dr. Juan M Low. HISTORY OF PRESENT ILLNESS: The patient is a 61-year-old male, who has had headaches for the last month. He states the headache has been persistent; however, it has changed in intensity. The patient was hospitalized back in August and September due to infective endocarditis of the aortic valve, status post AVR and embolic stroke. After discharge from the hospital, he went to rehab in [place] for approximately 32 days and went home. All-in- all, he has done fairly well except he has had a headache for the last month. He states that he has taken Aleve or Advil quhy-dxn-udzhyvw on a daily basis. He did not realize he was not supposed to take a nonsteroidal anti-inflammatory with Coumadin. Consequently, he woke up yesterday with a severe headache and found that his right arm was numb and weak. He was concerned that he may have had another stroke. He denied any visual changes, any dysarthria, or ataxia. The patient denies any fever, chills, nausea, or vomiting. PAST MEDICAL HISTORY: 1. Aortic valve endocarditis. 2. 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 3. Paroxysmal atrial fibrillation, currently on Coumadin therapy. 4. DVT (IVC filter placement). 5. Pulmonary emboli. 6. Chronic systolic heart failure with a current EF of 55%. 7. Diabetes mellitus type 2. 8. Hypertension. 9. Depression. 10.Debility. 11.Orthostatic symptoms. PAST SURGICAL HISTORY: Status post AVR and IVC filter placement. HOME MEDICATION LIST: Includes 1. Amiodarone 200 mg twice a day. 2. Aspirin 81 mg with supper. 3. Lipitor 80 mg at bedtime. Consultation Report [facility] [address] [place]. [address] NAME: ELADIO PETER : 53 STATUS : ADM Leeanna PAT#: [id number] AGE: 61 ADM/REG DATE : 01/07/17 MR#: [id number] REPORT SERV DATE: 01/08/17 DICTATED BY: SARA MEJIA DATE: 01/08/17 REPORT STATUS : Draft TRANSCRIBED BY: NICOLE DATE: 01/08/17 4. Symbicort inhaler 80/4.5 one inhalation at bedtime. 5. Vitamin D 40881 units weekly. 6. Lexapro 10 mg q.a.m. 7. Neurontin 200 mg daily. 8. Advil 200 mg twice a day. 9. NovoLog insulin on a sliding scale. 10.Prinivil 5 mg daily. 11.Melatonin 3 mg at bedtime. 12.Lopressor 12.5 mg b.i.d. 13.Multivitamin daily. 14.Nitroglycerin 0.4 mg sublingual. 15.Seroquel 25 mg b.i.d. 16.Florastor b.i.d. 17.Zofran p.r.n. 18.Coumadin 6 mg daily. SOCIAL HISTORY: The patient is . He has 3 kids. He is disabled. He was a smoker and also used marijuana but does not use illicit drugs. FAMILY HISTORY: The patient's mother is alive, she is 82, fairly healthy but does have chronic illness. His father at the age of 64 from alcohol abuse. He has one brother who has COPD. REVIEW OF SYSTEMS: For pertinent positives, please see HPI. PHYSICAL EXAMINATION: GENERAL: The patient is a 61-year-old male, who stands 5 feet 9 inches tall and weighs 203 pounds. He is afebrile. VITAL SIGNS: Heart rate 61, respiratory rate 12, O2 saturations on room air 95%, and blood pressure 134/63. NEUROLOGIC: The patient is awake. He is oriented x4, pleasant, communicates appropriately. Speech is clear. Language fluent. Pupils 4 mm. PERRLA. Cranial nerves 2 through 12 are relatively intact except the patient has bilateral visual field deficits in the upper visual allen. Tznuue-bl-xybi, mild ataxia bilaterally. No pronator drift. No tremor, asterixis, or dysmetria. Upper extremity strength is 5/5 bilaterally. No sensory deficits. DTRs are 1+ bilaterally. Lower extremity strength is 4/5 bilaterally. DTRs 1+ bilaterally downgoing toes. The patient can ambulate. His gait is wide based, slightly ataxic. Romberg is positive. Unable to tandem. DATA: CBC shows a white count of 11.8. BMP is normal except glucose is 182. INR is subtherapeutic at 1.8. Cholesterol values are normal. A1c is 6. Sedimentation rate 11. MRI of the brain, no acute changes. ASSESSMENT/PLAN: Consultation Report [place] [id number] [facility] [place]. [address] NAME: ELADIO PETER : 53 STATUS : ADM Leeanna PAT#: [id number] AGE: 61 ADM/REG DATE : 01/07/17 MR#: [id number] REPORT SERV DATE: 01/08/17 DICTATED BY: SARA MEJIA DATE: 01/08/17 REPORT STATUS : Draft TRANSCRIBED BY: NICOLE DATE: 01/08/17 1. Migraine headache. This could very likely be a rebound headache from daily use of anti- inflammatories. At this point, the patient will be placed on a Depakote cocktail which is Depacon IV 500 mg plus Compazine 5 mg. The patient will be placed on preventative therapy which will be Depakote 250 mg b.i.d. His Neurontin will be discontinued. He was cautioned against taking daily ahzj-kca-kpjlhji medications and particularly taking anti-inflammatories. 2. Possible seizure, the patient's mentions that he has severe myoclonic type activity, particularly at nighttime. He will undergo an EEG tomorrow and again he is being started on Depakote. 3. History of embolic stroke. The patient will be continued on Coumadin. He will be bridged with Lovenox until his INR is therapeutic (2.5 to 3.5). He will continue his aspirin and Lipitor. 4. History of endocarditis. The patient will undergo an echocardiogram with bubble study tomorrow. 5. Obstructive sleep apnea. The patient will be scheduled for an outpatient sleep study. Thank you again for including us in consultation and we will follow with you. YADY/NICOLE Sara Mejia DNP, [facility]- / [id number] CC: MD Julio Kan M.D. Steven Austin, M.D., [facility]
--- NOTE | ~2017-01-07 | HP ---
History And Physical [place] [address] [place]. [address] NAME: ELADIO PETER : 53 STATUS : ADM Leeanna PAT#: [id number] AGE: 61 ADM/REG DATE : 01/07/17 MR#: [id number] REPORT SERV DATE: 01/08/17 DICTATED BY: KARIN BUSTOS DATE: 01/07/17 REPORT STATUS : Draft TRANSCRIBED BY: MODL DATE: 01/07/17 DATE OF ADMISSION: 01/07/2017 CHIEF COMPLAINT: Left arm weakness and headache. HISTORY OF PRESENT ILLNESS: The patient is a 61-year-old male with past history of stroke, endocarditis, TAVR history, atrial fibrillation, pharyngeal cancer, diabetes type 2 with multiple admissions for the above. He presents after having approximately one month of headache, but today became quite painful and it has been quite severe, it has been intermittent, frontal, currently improved. The patient denies any worsening or improving symptoms, but also noted that he has started having left arm numbness and has also reported having right-sided chest discomfort, although he does report in his words, appears more musculoskeletal not cardiac. Symptoms have been intermittent with bsokqhyj-lr-flhkao in severity, kind of viselike, nonradiating, associated with headache, but no nausea, vomiting, fever, chills. Nothing worsening or relieving symptoms. The patient did have a stroke with no acute bleeding, is on his Coumadin but he has been subtherapeutic for approximately a week. REVIEW OF SYSTEMS: Additional 10-point review of systems negative for that noted in the HPI. PAST MEDICAL HISTORY: Aortic valve endocarditis, status post aortic valve redo with replacement, embolic CVA with mild hemorrhage conversion and paroxysmal atrial fibrillation, on Coumadin, left lower venous DVT, status post IVC, microembolic PE, chronic systolic heart failure with most recent EF of 55%, diabetes type 2, hypertension, depression, weakness and debility. SOCIAL HISTORY: History of smoking and marijuana, but quit many years ago. No alcohol. [place]. FAMILY HISTORY: Alcoholism in father. Mother healthy. MEDICATIONS: Medication list still pending. ALLERGIES: CODEINE AND SHELLFISH S. SURGERIES: TAVR with redo secondary to infection, CABG, tonsils, adenoids, cholecystectomy, head neck cancer resection, 2003. LABORATORY DATA: BNP 90.2. WBC count 11.8, H and H are 13.6 and 40.8, platelets 228. INR 1.6, sedimentation rate of 12. CT brain without contrast, continued evolution of left temporal occipital infarct, now chronic. No hemorrhagic conversion. Sodium 134, potassium 4.6, chloride 100, bicarb 28, BUN and creatinine 25 and 1.07, magnesium 1.9. Troponin negative. Calcium 9.0, glucose 116. Chest x-ray within normal limits. EKG sinus jessica at 58, QTc 453. History And Physical [address] [address] NAME: ELADIO PETER : 53 STATUS : ADM Leeanna PAT#: [id number] AGE: 61 ADM/REG DATE : 01/07/17 MR#: [id number] REPORT SERV DATE: 01/08/17 DICTATED BY: KARIN BUSTOS DATE: 01/07/17 REPORT STATUS : Draft TRANSCRIBED BY: NICOLE DATE: 01/07/17 PHYSICAL EXAMINATION: VITAL SIGNS: The patient's blood pressure 137/78, temperature 98.7, pulse 60, respirations 19, O2 saturations 96% on room air. GENERAL: No acute distress. Calm, pleasant. HEAD: Normocephalic, atraumatic. EYES: No scleral icterus, EOMI; however, does have bilateral mild nystagmus and loss of upper visual allen. ENT: Dry mucous membranes secondary to loss of saliva glands from prior radiation. Nares patent. RESPIRATORY: Clear to auscultation. No wheezes, rales. CV: Regular rate. Mild systolic ejection murmur. GI: Soft, nontender. Central obesity. : Deferred. MUSCULOSKELETAL: Symmetrical strength to hands and legs. SKIN: Warm and dry. LYMPH: No edema. HEME: No bleeding or bruising. NEURO: Alert to person, place, situation. Decreased visual acuity in upper visual allen bilaterally. Symmetrical strength. Mild eye nystagmus. Tongue midline. Symmetrical smile. Sensation is still grossly intact although mildly decreased in lower allen from neuropathy. No gross papilledema appreciated on bilateral eye exam, but does have hypertensive changes on nondilated ocular exam. Knee, ankle, and BR wrist reflexes symmetrical bilaterally. PSYCH: Appropriate mood and affect, joking manner. ASSESSMENT AND PLAN: 1. Transient ischemic attack with stroke history. 2. Chest pain, likely musculoskeletal. 3. Endocarditis history. 4. Diabetes type 2. 5. TAVR history. 6. Headache. 7. Atrial fibrillation. 8. Pharyngeal cancer history. 9. Azotemia. PLAN: 1. For TIA stroke history, orders initiated. CT noted with no new focal changes. The patient did have headache with left-sided changes and left-sided weakness. This is now resolved. No appreciable strength changes. ER has discussed with Neurology, recommended MRI as the patient did have recent stroke. Additionally also recommended Cardiology evaluation. We will repeat echocardiogram due to endocarditis history. The patient did complete Ancef IV for endocarditis history. No splinter hemorrhages, Janeway lesions, or Osler's nodes appreciated on nail bed exam. 2. Chest pain. Appears reproducible, musculoskeletal in nature. Family requesting Dr. Low. The patient sees Dr. Celeste at the [place] as an outpatient. We will monitor troponins and echo in the morning. 3. Endocarditis history. After complete antibiotics, we will recheck echocardiogram in History And Physical [address] [address] NAME: ELADIO PETER : 53 STATUS : ADM Leeanna PAT#: [id number] AGE: 61 ADM/REG DATE : 01/07/17 MR#: [id number] REPORT SERV DATE: 01/08/17 DICTATED BY: KARIN BUSTOS DATE: 01/07/17 REPORT STATUS : Draft TRANSCRIBED BY: NICOLE DATE: 01/07/17 a.m. 4. Diabetes type 2. Levemir, needs supplies at discharge. 5. TAVR history, secondary to bicuspid valve and then subsequent replacement due to infection, is on chronic anticoagulation. 6. Headache, unclear. TIA workup as above p.r.n. 7. Atrial fibrillation with RVR. 1:1 beat pulse ratio, rate control. 8. Pharyngeal cancer history, seen by Dr. Wills. No saliva. 9. Azotemia, IV fluids. All questions answered with the patient and family at bedside. DDN/MODL Karin Bustos MD / [id number] CC: Julio Yee M.D.
--- NOTE | ~2017-01-07 | DS ---
Discharge Summary [place] [address] [facility] [place]. [address] NAME: ELADIO PETER : 53 STATUS : DIS Leeanna PAT#: [id number] AGE: 61 ADM/REG DATE : 01/07/17 MR#: [id number] REPORT SERV DATE: 01/14/17 DICTATED BY: KARIN BUSTOS DATE: 01/13/17 REPORT STATUS : Draft TRANSCRIBED BY: MODLuciana DATE: 01/13/17 ADMISSION DATE: 01/07/2017 DISCHARGE DATE: 01/09/2017 DISCHARGE DIAGNOSES: 1. Transient ischemic attack. 2. Migraine. 3. Systolic heart failure, compensated. 4. Endocarditis history. 5. Artificial valve with subtherapeutic INR. CONSULTATIONS: Neurology and Dr. Low of Cardiology. PROCEDURES PERFORMED: 1. EEG: No asymmetric waveforms. 2. Vitamin D level 31, B12 445, folate 18.2, ammonia 20. INR at time of discharge 2.2. 3. Urinalysis: Within normal limits. 4. MRI performed; remote posterior cerebral artery infarction more extensive on the left. No acute intracranial process. Tiny focus of increased density adjacent to the right skull suggesting small piece of magnetic material most likely iron. 5. A1c 6.0, sedimentation rate 11, and BNP 90.2. DISCHARGE MEDICATIONS: Aspirin 81 mg one tab p.o. daily, Lipitor 80 mg one tab p.o. with supper, amiodarone 200 mg one tab p.o. b.i.d. New medication includes Depakote 250 mg one tab p.o. b.i.d.; vitamin D 28338 units p.o. q.7 days; Lexapro 10 mg one tab p.o. every morning. Home sliding scale insulin. Prinivil 5 mg one tab p.o. every morning. Melatonin 3 mg one tab p.o. at bedtime. Multivitamin daily. Metoprolol 12.5 mg one tab p.o. b.i.d., Protonix 40 mg one tab p.o. before breakfast, Seroquel 25 mg one tab p.o. b.i.d., Florastor 250 mg one tab p.o. b.i.d. Warfarin increased to 7 mg one tab p.o. with followup with INR clinic. Symbicort 1 puff inhalation daily. Gabapentin 200 mg one tab p.o. b.i.d., Zofran sample packs given by PCP p.r.n. nausea vomiting. Discontinue Advil. HOSPITAL COURSE: Please see H and P for complete details. HISTORY OF PRESENT ILLNESS: Briefly, Mr. Peter is a 61-year-old male, with recent extended and complex history with acute stroke, endocarditis who presents after fairly well but has had a 3-week history of headaches that became excruciating on day of admission, concern for TIA type symptoms with numbness that has resolved, neurologic workup fairly stable. He did have concerns for migraine and was treated with Depakote and had symptomatic improvement. However, with constellation of numbness and headache type symptoms, concern for TIA and TIA workup was initiated. The patient was additionally evaluated by Cardiology as the patient did have musculoskeletal type pain but due to patient's recent history, request for ruling out ACS was also noted and was negative throughout hospital stay. The patient felt notably improved after trial of Depakote while inpatient. He did have MRI as Discharge Summary [address] [address] NAME: ELADIO PETER : 53 STATUS : DIS Leeanna PAT#: [id number] AGE: 61 ADM/REG DATE : 01/07/17 MR#: [id number] REPORT SERV DATE: 01/14/17 DICTATED BY: KARIN BUSTOS DATE: 01/13/17 REPORT STATUS : Draft TRANSCRIBED BY: NICOLE DATE: 01/13/17 noted above. The patient was able to be discharged by Cardiology and Neurology to home with family. The patient was happy and was able to be increased to optimal INR as the patient has been subtherapeutic for least a week per history. Close monitoring of INR was encouraged for the patient to prevent from possible TIA type symptoms due to cardiac history. The patient's family aware, appreciated multidisciplinary care given. The patient to follow up with PCP in three to five days for INR. Neurology has ordered and Dr. Low has ordered. All questions answered to the patient and family. DICTATED BY: MD HANNAH Kan/NICOLE Karin Bustos MD / [id number] CC: Karin Bustos MD
--- NOTE | ~2017-01-07 | CN ---
Consultation Report [facility] [address] [place]. [address] NAME: ELADIO PETER : 53 STATUS : ADM Leeanna PAT#: [id number] AGE: 61 ADM/REG DATE : 01/07/17 MR#: [id number] REPORT SERV DATE: 01/08/17 DICTATED BY: JUAN M VELA DATE: 01/08/17 REPORT STATUS : Draft TRANSCRIBED BY: MODL DATE: 01/08/17 CARDIOVASCULAR CONSULTATION DATE OF CONSULTATION: 01/08/2017 HISTORY OF PRESENT ILLNESS: Mr. Eladio peter is a 61-year-old gentleman, well known to me, status post redo AVR/homograft/root secondary to a TAVR endocarditis which had been performed secondary to restenoses of the patient's original aortic valve replacement which was done initially secondary to congenital bicuspid valve. The patient presented to the emergency room complaining of several weeks of intermittent headache. He reports that on the day of presentation it had become quite severe and that he began having some left arm numbness. The patient also complained of some right parasternal type chest pain, which he states does not feel like his previous cardiac discomfort. He states that it feels like "a muscle or a bone." The patient reports no associated shortness of breath, nausea, or diaphoresis. REVIEW OF SYSTEMS: The patient denies any gastrointestinal, genitourinary, or respiratory complaints. Cardiac and neurologic complaints are as per above. PAST MEDICAL HISTORY: As noted above significant for aortic valve replacement now x3. The patient has had a history of embolic CVA with his episode of endocarditis several months ago. He has a history of previous DVT and IVC. He has a history of hypertension and diabetes mellitus type 2. SOCIAL HISTORY: The patient admits to occasional marijuana use. He does not smoke or use ethanol. FAMILY HISTORY: Noncontributory. MEDICATIONS: See list. ALLERGIES: THE PATIENT REPORTS ALLERGY TO CODEINE. PHYSICAL EXAMINATION: VITAL SIGNS: Vital signs stable. The patient is afebrile. GENERAL: This is a well-developed, well-nourished, obese 61-year-old white male, alert and oriented x3, in no acute distress. NECK: No jugular venous distention, hepatojugular reflux, or carotid bruits. CARDIOVASCULAR: Normal rate, regular rhythm, 1/6 holosystolic murmur which radiates to the apex. PMI is nondisplaced. LUNGS: Clear to auscultation without wheezes, rales, or rhonchi. ABDOMEN: Soft, nontender, and nondistended. Positive bowel sounds. EXTREMITIES: Reveals trace lower extremity edema. NEUROLOGIC EXAM: Grossly nonfocal. Consultation Report [facility] [address] [place]. [address] NAME: ELADIO PETER : 53 STATUS : ADM Leeanna PAT#: [id number] AGE: 61 ADM/REG DATE : 01/07/17 MR#: [id number] REPORT SERV DATE: 01/08/17 DICTATED BY: JUAN M VELA DATE: 01/08/17 REPORT STATUS : Draft TRANSCRIBED BY: NICOLE DATE: 01/08/17 DATA REVIEWED: EKG shows sinus rhythm with first-degree AV block. There is no evidence of acute injury or ischemia. Troponin x3 is negative for myocardial necrosis. ASSESSMENT: 1. Chest pain-right parasternal, consistent with musculoskeletal discomfort. 2. Coronary artery disease-stable. 3. Status post AVR-stable. 4. History of paroxysmal atrial fibrillation. 5. Headache. 6. Diabetes mellitus type 2. PLAN: 1. Continue current CV medications. 2. Check echocardiogram. 3. Proceed with headache workup and treatment. I appreciate your consultation on this complex patient. I will follow him closely with you. YUDITH Juan M Vela M.D., [facility] / [id number] CC: Bereket Kessler MD NO PCP [facility]
[2017-01-07 13:23] LABS: BASOPHILS 0.6 %; BASOPHILS ABSOLUTE 0.07 10/3/uL (0.0-0.16); EOSINOPHILS 10.6 %; EOSINOPHILS ABSOLUTE 1.25 10/3/uL (0.0-0.53); IMMATURE GRANULOCYTES 0.8 %; LYMPHOCYTES 25.7 %; LYMPHOCYTES ABSOLUTE 3.03 10/3/uL (0.67-4.30); MEAN CORPUSCULAR HEMOGLOB 26.9 pg (26.0-34.0); MEAN PLATELET VOLUME 9.2 fL (9.2-13.0); MONOCYTES 8.4 %; MONOCYTES ABSOLUTE 0.99 10/3/uL (0.21-1.20); NEUTROPHILS 53.9 %; NEUTROPHILS ABSOLUTE 6.33 10/3/uL (2.02-8.40); RBC DISTRIBUTION WIDTH 16.8 % (12.0-16.0)
[2017-01-07 13:26] LABS: ER CBC TAT 0 Hrs 07 Mins; HEMATOCRIT 40.8 % (40.0-51.0); HEMOGLOBIN 13.6 g/dL (13.6-17.8); MANUAL DIFF NO %; MEAN CORPUS HGB CONC 33.3 g/dL (32.0-36.0); MEAN CORPUSCULAR VOLUME 80.6 fL (80-100); PLATELET COUNT 228 10/3/uL (150-400); RED CELL COUNT 5.06 10/6/uL (4.7-6.1); WHITE BLOOD CELLS 11.8 10/3/uL (4.5-10.5)
[2017-01-07 13:30] LABS: INTERNATIONAL NORMAL RATI 1.6 UNITS (-); PARTIAL THROMBO TIME 26.3 SEC (22.5-37.2); PROTIME (NOT ORD) 18.5 SEC (12.0-14.5)
[2017-01-07 13:38] LABS: BUN (BLOOD UREA NITROGEN) 25 MG/DL (6-23); CHEST PAIN PROFILE TAT 0 Hrs 19 Mins; CHLORIDE, SERUM 100 MMOL/L (96-112); CO2 (CARBON DIOXIDE) 28 MMOL/L (24-34); CREATININE 1.07 MG/DL (0.70-1.30); GFR AFRICAN AMERICAN 86 ML/MIN (>=60); GFR NON AFRICAN AMERICAN 74 ML/MIN (>=60); GLUCOSE, SERUM 116 MG/DL (60-99); POTASSIUM, SERUM 4.6 MMOL/L (3.5-5.3); SODIUM, SERUM 134 MMOL/L (135-148); TROPONIN I <0.02 NG/ML (<0.05)
[~2017-01-07 13:48] MED LIST changes: +CARDCD120 PO; +CEFAZ1 IV; +FLORASTOR250 MG PO; +NOVOLOG SC; +PROAIR HFA INH; +SYMBICORT 80/4.1 INH INH; +VISINE TEARS15 ML OPH
[2017-01-07 15:50] LABS: SED RATE 12 MM/HR (0-15)
[2017-01-07] MEDS ORDERED: MELA3 PO (16:27)
[2017-01-07] MEDS ORDERED: ASAB PO (16:27)
[2017-01-07] MEDS ORDERED: MULTIVIT/MIN PO (16:27)
[2017-01-07] MEDS ORDERED: CORDARONE PO (16:28)
[2017-01-07] MEDS ORDERED: LEXAPRO10 PO (16:28)
[2017-01-07] MEDS ORDERED: LOP25 PO (16:28)
[2017-01-07] MEDS ORDERED: LIPITOR80 MG PO (16:29)
[2017-01-07] MEDS ORDERED: SEROQUEL25 PO (16:29)
[2017-01-07] MEDS ORDERED: PRIN5 PO (16:29)
[2017-01-07] MEDS ORDERED: COUMADIN6 MG PO (16:30)
[2017-01-07] MEDS ORDERED: NEUR100 PO (16:30)
[2017-01-07] MEDS ORDERED: VITD PO (16:31)
[2017-01-07] MEDS ORDERED: FLORASTOR250 MG PO (16:31)
[2017-01-07] MEDS ORDERED: ADVIL PO (16:33)
[2017-01-07] MEDS ORDERED: ZOFRAN PO (16:33)
[2017-01-07] MEDS ORDERED: NOVOLOG SC (16:34)
[2017-01-07] MEDS ORDERED: SYMBICORT 80/4.1 INH INH (16:34)
[2017-01-07] MEDS ORDERED: NITROSTAT0.4 MG SL (16:35)
[2017-01-07 21:52] LABS: CK-MB 1.6 NG/ML; CPK 78 U/L (0-200); TROPONIN I <0.02 NG/ML (<0.05)
[2017-01-08 05:49] LABS: BUN (BLOOD UREA NITROGEN) 26 MG/DL (6-23); CHLORIDE, SERUM 104 MMOL/L (96-112); CO2 (CARBON DIOXIDE) 24 MMOL/L (24-34); CPK 68 U/L (0-200); CREATININE 1.11 MG/DL (0.70-1.30); GFR AFRICAN AMERICAN 82 ML/MIN (>=60); GFR NON AFRICAN AMERICAN 71 ML/MIN (>=60); POTASSIUM, SERUM 4.6 MMOL/L (3.5-5.3); SGOT(AST) 30 U/L (5-40); SGPT(ALT) 55 U/L (5-65); SODIUM, SERUM 136 MMOL/L (135-148); TOTAL BILIRUBIN 0.6 MG/DL (0-1.2); TOTAL PROTEIN 7.4 G/DL (6.0-8.5); TRIGLYCERIDE 90 MG/DL (< 150); TROPONIN I <0.02 NG/ML (<0.05)
[2017-01-08 05:50] LABS: A/G RATIO 0.9 (0.7-1.9); ALBUMIN 3.5 G/DL (3.5-5.0); ALKALINE PHOSPHATASE 91 U/L (45-117); C-REACTIVE PROTEIN < 2.9 MG/L (<8.0); CHOL/HDL RATIO(NOT ORDER) 1.8 (0-5); CHOLESTEROL 146 MG/DL (< 200); CK-MB 1.5 NG/ML; GLOBULIN 3.9 G/DL (2.5-4.1); GLUCOSE, SERUM 182 MG/DL (60-99); HDL CHOLESTEROL 82 MG/DL (> 39); LDL CHOLESTEROL 46 MG/DL (< 130); NON-HDL CHOLESTEROL 64 MG/DL (< 160)
[2017-01-08 11:40] LABS: INTERNATIONAL NORMAL RATI 1.5 UNITS (-); PROTIME (NOT ORD) 17.6 SEC (12.0-14.5)
[2017-01-09 02:07] LABS: ASCORBIC ACID (UR NOT ORDER) NEG (NEG); BILIRUBIN, URINE NEGATIVE (NEG); KETONE, URINE NEGATIVE (NEG); LEUKOCYTE ESTERASE(NOT OR NEG (NEG); WBC (NOT ORDERED) (RFLEX) < 1 (0-5)
[2017-01-09 05:14] LABS: BASOPHILS 0.1 %; BASOPHILS ABSOLUTE 0.01 10/3/uL (0.0-0.16); EOSINOPHILS 0.9 %; EOSINOPHILS ABSOLUTE 0.12 10/3/uL (0.0-0.53); HEMATOCRIT 39.9 % (40.0-51.0); HEMOGLOBIN 13.2 g/dL (13.6-17.8); IMMATURE GRANULOCYTES 0.5 %; IMMATURE GRANULOCYTES ABSOLUTE 0.06 10/3/uL (0.0-0.11); INTERNATIONAL NORMAL RATI 2.2 UNITS (-); LYMPHOCYTES 19.2 %; LYMPHOCYTES ABSOLUTE 2.48 10/3/uL (0.67-4.30); MEAN CORPUS HGB CONC 33.1 g/dL (32.0-36.0); MEAN CORPUSCULAR HEMOGLOB 27.3 pg (26.0-34.0); MEAN CORPUSCULAR VOLUME 82.4 fL (80-100); MEAN PLATELET VOLUME 9.3 fL (9.2-13.0); MONOCYTES 7.4 %; MONOCYTES ABSOLUTE 0.96 10/3/uL (0.21-1.20); NEUTROPHILS 71.9 %; PLATELET COUNT 219 10/3/uL (150-400); RBC DISTRIBUTION WIDTH 16.7 % (12.0-16.0); RED CELL COUNT 4.84 10/6/uL (4.7-6.1); WHITE BLOOD CELLS 12.9 10/3/uL (4.5-10.5)
[2017-01-09 05:17] LABS: MANUAL DIFF NO %
[2017-01-09 05:26] LABS: PROTIME (NOT ORD) 23.8 SEC (12.0-14.5)
[2017-01-09 05:49] LABS: A/G RATIO 0.9 (0.7-1.9); ALBUMIN 3.4 G/DL (3.5-5.0); ALKALINE PHOSPHATASE 87 U/L (45-117); BUN (BLOOD UREA NITROGEN) 24 MG/DL (6-23); CALCIUM, SERUM 9.3 MG/DL (8.5-10.4); CHLORIDE, SERUM 102 MMOL/L (96-112); CREATININE 1.19 MG/DL (0.70-1.30); DIRECT BILIRUBIN 0.1 MG/DL (0.0-0.4); GFR AFRICAN AMERICAN 75 ML/MIN (>=60); GFR NON AFRICAN AMERICAN 65 ML/MIN (>=60); GLOBULIN 3.6 G/DL (2.5-4.1); INDIRECT BILIRUBIN(NOT ORDER) 0.8 MG/DL (0.1-0.9); POTASSIUM, SERUM 4.8 MMOL/L (3.5-5.3); SGOT(AST) 24 U/L (5-40); SGPT(ALT) 51 U/L (5-65); SODIUM, SERUM 139 MMOL/L (135-148); TOTAL BILIRUBIN 0.9 MG/DL (0-1.2)
[2017-01-09 05:53] LABS: CO2 (CARBON DIOXIDE) 31 MMOL/L (24-34); FOLATE 18.2 NG/ML (>5.2); GLUCOSE, SERUM 143 MG/DL (60-99)
[2017-01-09 06:32] LABS: PROCALCITONIN 0.05 ng/mL (<0.5)
[2017-01-09] MEDS ORDERED: DEPAKOT250 PO (17:07)
[2017-01-09] MEDS ORDERED: PROTONIX PO (17:08)
[2017-01-09] MEDS ORDERED: COUMADIN7.5 MG PO (17:12)
== END 2017-01-09 17:32 | disposition home or self-care (01) ==
LOC: ER 13:48 → CDU1 15:53 → CDU2 17:03
PROVIDERS: Emergency Medicine; Internal Medicine; Nurse Practitioner; Student in an Organized Health Care Education/Training Program
DX: G45.9 Transient cerebral ischemic attack, unspecified (principal); R07.9 Chest pain, unspecified; E11.9 Type 2 diabetes mellitus without complications; I48.2 Chronic atrial fibrillation; I11.0 Hypertensive heart disease with heart failure; R79.89 Other specified abnormal findings of blood chemistry; G47.33 Obstructive sleep apnea (adult) (pediatric); G43.909 Migraine, unspecified, not intractable, without status migrainosus; F32.9 Major depressive disorder, single episode, unspecified; I25.10 Atherosclerotic heart disease of native coronary artery without angina pectoris; I50.20 Unspecified systolic (congestive) heart failure; Z79.82 Long term (current) use of aspirin; Z86.73 Personal history of transient ischemic attack (TIA), and cerebral infarction without residual deficits; Z86.711 Personal history of pulmonary embolism; Z88.5 Allergy status to narcotic agent; Z91.013 Allergy to seafood; Z79.01 Long term (current) use of anticoagulants; Z79.51 Long term (current) use of inhaled steroids
CPT/HCPCS: 70450; 70551-52; 71020; 80048; 80053; 80061; 80076; 81001; 82140; 82248; 82306; 82550; 82553; 82607; 82746; 82962; 83036; 83735; 83880; 84145; 84484; 85025; 85610; 85652; 85730; 86140; 93005; 95816; 96372; 96374; 96375; 97161-GP; 99285; A9270-GY; C8922; G0378; J0780; J2930; Q9957